=== PATIENT | male | born 1940 | race Caucasian/White ===

== ENCOUNTER 2017-06-19 13:45 | Outpatient (CLI) | payer MEDICARE, BC ==
--- NOTE | 2017-06-19 14:06 | RAD ---
PA AND LATERAL CHEST: COMPARISON: 04/24/06 exam. FINDINGS: Heart size is within normal limits. There is postop sternotomy change. Chronic-appearing lung clark es are seen. There has been development of some right-sided effusion since that prior exam versus pl eural thickening. IMPRESSION: 1. Right-sided pleural effusion versus pleural thickening new as compared to the old 2006 study. 2. Chronic lung change. POS: [facility]
== END 2017-06-19 13:46 | disposition home or self-care (01) ==
LOC: RAD 13:45
PROVIDERS: ATTEND Nurse Practitioner Family
DX: R94.2 Abnormal results of pulmonary function studies (principal)
CPT/HCPCS: 71046

== ENCOUNTER 2019-07-29 09:43 | Outpatient (CLI) | payer MEDICARE, BC ==
--- NOTE | 2019-07-29 11:44 | RAD ---
PA AND LATERAL VIEWS OF CHEST: Date: 07/29/2019 HISTORY: COPD, dyspnea. COMPARISON: 03/31/2019. FINDINGS: Changes of median sternotomy are again seen. Chronic pleural parenchymal changes, particularly in the right hemithorax, are stable. The heart size is normal. The aorta is tortuous. No lobar consolidatio n, pneumothoraces, or left-sided pleural effusion identified. There are degenerative changes in the s pine. IMPRESSION: Stable exam. POS: [facility]
== END 2019-07-29 09:44 | disposition home or self-care (01) ==
LOC: BICRAD 09:43
PROVIDERS: ATTEND Internal Medicine Critical Care Medicine
DX: R06.00 Dyspnea, unspecified (principal)
CPT/HCPCS: 71046

== ENCOUNTER 2019-08-23 08:40 | Outpatient (CLI) | payer MEDICARE, BC ==
--- NOTE | 2019-08-23 09:26 | CT ---
CT OF THE THORAX WITHOUT IV CONTRAST INDICATION: 79-year-old male with history of shortness of breath and open heart surgery COMPARISON: 2 view chest radiograph dated July 29, 2019 FINDINGS: LUNGS: There is a spiculated 1.7 x 1.1 cm pulmonary nodule involving the left infrahilar region, with in the left lower lobe on image 170 of the axial series and image 68 of the coronal series. This lesion is suspicious for malignancy. There is scattered moderate to severe paraseptal emphysema with peripheral interstitial fibrosis. This is seen in a predominantly upper lobe distribution. No additional suspicious pulmonary nodule is identified. Pleural spaces: There is chronic pleural thickening involving the right hemithorax. Lymph nodes: The lack of IV contrast limits evaluation for hilar lymphadenopathy. No definite patholo gically enlarged mediastinal lymph nodes are evident. Subcarinal lymph node measuring up to 1.4 cm. Heart and great vessels: There is postsurgical change of a prior CABG. There are prominent coronary a rtery and thoracic aortic calcifications. Upper abdomen: There is a 2.2 cm myelolipoma involving the right adrenal gland. Left adrenal gland is normal-appearing. Visualized aspects of the liver, pancreas and spleen appear within normal limits. Osseous structures: There are DISH like changes involving the thoracic spine with diffuse osteopenia. No suspicious osteolytic or osteoblastic lesion is identified. No acute fracture is present. IMPRESSION: 1. Spiculated left infrahilar nodule is suspicious for malignancy. Due to the proximity of this nodul e to the adjacent hilar vessels, CT-guided percutaneous biopsy is not recommended. Would recommend further characterization with a PET/CT and surgical referral. No overt mediastinal lymphadenopathy is evident. The subcarinal lymph node is upper limits of normal measuring 1.4 cm. Lymph nodes can be better characterized by PET/CT. 2. Moderate to severe emphysema 3. Persistent chronic pleural thickening involving the right hemithorax may reflect sequela of prior pleurodesis, infection or inflammation. 4. Right adrenal myelolipoma. 5. [facility] like changes of the thoracic spine
== END 2019-08-23 08:41 | disposition home or self-care (01) ==
LOC: BICCT 08:40
PROVIDERS: ATTEND Internal Medicine Critical Care Medicine
DX: R06.00 Dyspnea, unspecified (principal); R91.1 Solitary pulmonary nodule; J92.9 Pleural plaque without asbestos; J43.9 Emphysema, unspecified; D35.00 Benign neoplasm of unspecified adrenal gland
CPT/HCPCS: 71250

== ENCOUNTER 2019-11-03 09:42 | Outpatient (CLI) | payer MEDICARE, BC ==
--- NOTE | 2019-11-03 10:16 | CT ---
CT OF THE THORAX WITHOUT IV CONTRAST INDICATION: 79-year-old male with shortness of breath COMPARISON: Prior examination dated August 23, 2019 FINDINGS: LUNGS: The interstitial lung disease changes including peripheral interstitial thickening, subpleural honeycombing with scattered mild bronchiectasis, seen predominantly upper lobe distribution are stable. There are areas of subsegmental volume loss involving the right lung base due to a small righ t pleural effusion . There is a enlarging left infrahilar spiculated nodule measuring 2.3 cm were previously measured 1. 7 cm. Pleural spaces: Small right pleural effusion is stable. Lymph nodes: No pathologically enlarged lymph nodes. Subcarinal lymph node is stable in size measurin g 1.4 cm. Heart and great vessels: There is stable postprocedural change of a prior coronary artery bypass terry t. There are prominent calcifications involving the coronary arteries and thoracic aorta. Upper abdomen: There is a stable calcification seen within the right adrenal gland. 1.3 cm right adre nal myelolipoma is stable. No acute abnormality is seen within the upper abdomen. Osseous structures: The DISH like changes involving the thoracic spine are stable. IMPRESSION: 1. Enlarging left infrahilar spiculated pulmonary nodule. 2. Stable changes of mild to moderate interstitial lung disease. 3. Stable small chronic right pleural effusion. 4. Stable mild enlargement of a subcarinal lymph node measuring up to 1.4 cm. 5. Stable right adrenal myelolipoma.
== END 2019-11-03 09:43 | disposition home or self-care (01) ==
LOC: BICCT 09:42
PROVIDERS: ATTEND Internal Medicine Critical Care Medicine
DX: R06.00 Dyspnea, unspecified (principal); R91.1 Solitary pulmonary nodule; J84.9 Interstitial pulmonary disease, unspecified; J90 Pleural effusion, not elsewhere classified; R59.0 Localized enlarged lymph nodes; D17.79 Benign lipomatous neoplasm of other sites
CPT/HCPCS: 71250

== ENCOUNTER 2019-11-12 08:02 | Outpatient (CLI) | payer MEDICARE, BC ==
--- NOTE | 2019-11-12 11:10 | PET ---
EXAM: PET/CT HISTORY: Solitary pulmonary nodule TECHNIQUE: PET scanning with CT attenuation correction was performed from the base of the brain to the proximal thighs following the intravenous administration of 11.8 millicuries [id number]. COMPARISON: None. CORRELATION: CT chest of 11/03/2019 FINDINGS: There is hypermetabolic activity in the 2.3 cm infrahilar spiculated nodule in the left lower lobe wi th a SUV are 3.6. No aguilar hypermetabolism is seen in the mediastinal, hilar, axillary, cervical, abdominal or pelvic l ymph nodes. No hypermetabolic liver, adrenal or skeletal lesions are seen. There is a focally intense uptake in the rectosigmoid with an SUV of 10. There is physiologic activity in the GI and tracts and the visualized portions of the brain. The CT scan used for attenuation correction demonstrates no evidence of left pleural effusion or asci primo. A small right pleural effusion is again seen. IMPRESSION: 1. Findings are suspicious for left lower lobe malignancy without evidence of metastatic disease. 2. A colonoscopy should be performed to evaluate the finding in the rectosigmoid.
== END 2019-11-12 08:03 | disposition home or self-care (01) ==
LOC: PET 08:02
PROVIDERS: ATTEND Internal Medicine Critical Care Medicine
DX: R91.1 Solitary pulmonary nodule (principal)
CPT/HCPCS: 78815; A9552

== ENCOUNTER 2019-11-24 12:40 | Inpatient (IN) | payer MEDICARE, BC, OTHER ==
[~2019-11-24 12:40] MED LIST: Heparin 1,000 UNITS/ML VIAL ONE; Iopamidol-370 76% 500 ML 1 ML ONE
[2019-11-24 13:34] LABS: #Lymphocytes 1.5 thou/uL (1.20-3.40); #Monocytes 0.5 thou/uL (0.11-0.59); #Neutrophils 6.4 thou/uL (1.40-6.50); %Basophils 0.3 % (0.0-1.0); %Eosinophils 0.1 % (0.0-10.0); %Lymphocytes 18.1 % (21.0-51.0); %Monocytes 6.3 % (0.0-10.0); %Neutrophils 75.1 % (42.0-75.0); Hemoglobin 15.8 g/dL (14.0-18.0); Mean Corpuscular HGB CONC 31.9 g/dL (32.0-36.0); Mean Corpuscular Hemoglobin 31.5 pg (27.0-31.0); Mean Corpuscular Volume 98.6 fL (78.0-98.0); Mean Platelet Volume 7.1 fL (7.4-10.4); Platelet Count 155 thou/uL (130-400); RBC Distribution Width 13.2 % (11.5-14.5); Red Blood Cell (RBC) Count 5.01 mill/uL (4.70-6.10); White Blood Cell (WBC) Count 8.5 thou/uL (4.8-10.8)
--- NOTE | 2019-11-24 13:37 | RAD ---
XR Chest 1 View Portable History: Shortness of breath Comparison: Chest CT October 2019 Findings: Left lower lobe mass is unchanged. Chronic right lower pleural effusion is similar. Right l ower lobe atelectasis is present. No acute osseous abnormality. Multiple midline sternotomy wires. Impression: 1. Similar appearing left perihilar mass. 2. Chronic right layering pleural effusion and adjacent from atelectasis. 3. No evidence for acute pneumonia.
[2019-11-24 13:59] LABS: ALT (SGPT) 23 U/L (8-55); AST (SGOT) 28 U/L (5-34); Alkaline Phosphatase 111 U/L (40-110); Anion Gap 15 mmol/L (10-20); BUN (Urea Nitrogen) 15 mg/dL (8.4-25.7); Bilirubin, Total 0.5 mg/dL (0.2-1.2); Calc. Creatinine Clearance 0 mL/min (70-130); Calcium 9.4 mg/dL (7.8-10.44); Carbon Dioxide 32 mmol/L (23-31); Chloride 100 mmol/L (98-107); Estimated GFR-MDRD 84; Globulin 3.3 g/dL (2.4-3.5); Glucose 163 mg/dL (83-110); Protein, Total 7.3 g/dL (5.8-8.1); Sodium 143 mmol/L (136-145)
[2019-11-24 14:17] LABS: CKMB 2.8 ng/mL (0-6.6)
[2019-11-24] MEDS ORDERED: Aspirin Chewable 81 MG TAB ONE (15:33)
[2019-11-24] MEDS ORDERED: Furosemide 20 MG/2 ML VIAL ONE (15:33)
[2019-11-24 17:28] LABS: Troponin I 0.121 ng/mL (< 0.028)
[2019-11-24] MEDS ORDERED: Ondansetron PF 4 MG/2 ML Vial IVP PRN ×2 (18:30→18:46)
[2019-11-24] MEDS ORDERED: Acetaminophen 325 MG TAB PO PRN (18:30)
[2019-11-24] MEDS ORDERED: Sodium Chloride 0.9% 1,000 ML IV SCH (18:30)
[2019-11-24] MEDS ORDERED: Ondansetron ODT 4 MG TAB SL PRN (18:30)
[2019-11-24] MEDS ORDERED: IBUPROFEN PO PRN (18:31)
[2019-11-24] MEDS ORDERED: PROVENTIL INHALER 6.7 G (200 INHALATIONS) INH PRN (18:31)
[2019-11-24] MEDS ORDERED: HYDROCODONE PO PRN (18:31)
--- NOTE | 2019-11-24 18:31 | PDOC.FPRHP ---
- History of Present Illness Chief Complaint: SOB History of Present Illness: This is a 79 yo male with a pmh of HTN, HLD, CAD, COPD, likely some pulmonary malignancy who presents to the ER with acc of SOB. He states the SOB has been going on for the last 7 months. He states in March, he was cutting a porcelain bath tub with no mask. He states that his lungs have not been the same since then. Acutely, in the last 2-3 days, he states that he has had progressive SOB, dyspnea, and exercise intolerance. He was preparing for a colonoscopy and finished the prep, when he was seen at the endoscopy suite and was pale. His niece was worried about him and prompted the visit to the ER. He denies chest pain, increased sputum production, cough, fever, chills, sick contacts, or swelling. He does appear to have a lung mass on CXR than apparently was concerning for cancer. He had a PET scan on 11/10/19 that shows increased uptake in the lung, gut, and brain. He is unaware of any progress being made on these findings at this time. Dr. Damon is his general milling superintendent and Dr. Quiles is his trimming cutter. In addition, he reports progressive dysphagia. He states he has some trouble swallowing food but no trouble with liquids. He denies any treatment at this time but reports he needs someone to go and stretch out his esophagus ED Course: Lasix 20mg Aspirin 324 Duoneb - Allergies/Adverse Reactions Allergies Allergy/AdvReac Type Severity Reaction Status Date / Time No Known Allergies Allergy Unverified 03/22/15 09:43 - Home Medications Medication Instructions Recorded Confirmed Type Atorvastatin Calcium 80 mg PO QPM 03/22/15 11/24/19 History Carvedilol 0.5 tab PO BID 03/22/15 11/24/19 History HYDROcodone/Ibuprofen [Ibudone] 1 tablet PO TID PRN 03/22/15 11/24/19 History Ipratropium [place] 0.5 mg NEB Q6HR PRN 03/22/15 03/22/15 History Multivit-Min/FA/Lycopen/Lutein 1 each PO DAILY 03/22/15 11/24/19 History [Centrum Silver Tablet] Ramipril 5 mg PO QAM 03/22/15 11/24/19 History Tamsulosin HCl [Flomax] 0.4 mg PO BID 03/22/15 11/24/19 History Aspirin [Aspirin EC] 81 mg PO DAILY #0 03/24/15 11/24/19 Rx Clopidogrel Bisulfate [Plavix] 75 mg PO DAILY #0 03/24/15 11/24/19 Rx Albuterol Sulfate [Albuterol 8.5 gm IH Q4HR PRN 11/24/19 11/24/19 History Sulfate Hfa] Ipratropium/Albuterol Sulfate 3 ml NEB QID PRN 11/24/19 11/24/19 History [Duoneb] rOPINIRole HCl [Ropinirole HCl] 0.25 mg PO DAILY 11/24/19 11/24/19 History - History PMHx: COPD, CAD, HLD, HTN, BPH PSHx: CABG, low back pain FHx: Non-contributory Social: Denies alcohol or drug abuse, reports previous significant smoking history and currently dips - Review of Systems General: reports: fatigue. denies: fever/chills, weight/appetite/sleep changes, night sweats Eyes: denies: eye pain, vision changes ENT: denies: nasal congestion, rhinorrhea Respiratory: reports: shortness of breath, exercise intolerance. denies: cough, congestion Cardiovascular: denies: chest pain, palpitation, edema, paroxysmal nocturnal dyspnea, orthopnea Gastrointestinal: denies: nausea, vomiting, diarrhea, constipation, abdominal pain Genitourinary: denies: incontinence, dysuria Skin: denies: rashes, lesions Musculoskeletal: reports: pain (low back pain). denies: tenderness, stiffness Neurological: denies: numbness, syncope, seizure, weakness Psychological: denies: depression - Vital signs BP: HR: 85 RR: 20 Tmax: 98.1 Pox: 95% on ra Wt: 63kg 132/67 - Physical Exam Constitutional: NAD, awake, alert and oriented, well developed HEENT: EOMI, grossly normal vision, grossly normal hearing, MMM, other (brown tongue consistent with chewing tobacco) Neck: trachea midline, no JVD Heart: RRR, normal S1/S2 Lungs: CTAB, no respiratory distress, good air movement, no rales/rhonchi, no wheezing, no retractions Abdomen: soft, non-tender, bowel sounds present, no masses/distention Musculoskeletal: normal structure, normal tone Neurological: normal sensation Skin: good turgor, capillary refill <2 seconds Heme/Lymphatic: no unusual bruising or bleeding, no purpura Psychiatric: normal mood and affect, good judgment and insight FMR H&P: Results - Labs Result Diagrams: 11/24/19 13:00 11/24/19 13:00 Lab results: WBC 8.5 thou/uL (4.8-10.8) 11/24/19 13:00 Hgb 15.8 g/dL (14.0-18.0) 11/24/19 13:00 Hct 49.4 % (42.0-52.0) 11/24/19 13:00 MCV 98.6 fL (78.0-98.0) H 11/24/19 13:00 Plt Count 155 thou/uL (130-400) 11/24/19 13:00 Neutrophils % 75.1 % (42.0-75.0) H 11/24/19 13:00 Sodium 143 mmol/L (136-145) 11/24/19 13:00 Potassium 4.0 mmol/L (3.5-5.1) 11/24/19 13:00 Chloride 100 mmol/L (98-107) 11/24/19 13:00 Carbon Dioxide 32 mmol/L (23-31) H 11/24/19 13:00 BUN 15 mg/dL (8.4-25.7) 11/24/19 13:00 Creatinine 0.88 mg/dL (0.7-1.3) 11/24/19 13:00 Glucose 163 mg/dL (83-110) H 11/24/19 13:00 Calcium 9.4 mg/dL (7.8-10.44) 11/24/19 13:00 Total Bilirubin 0.5 mg/dL (0.2-1.2) 11/24/19 13:00 AST 28 U/L (5-34) 11/24/19 13:00 ALT 23 U/L (8-55) 11/24/19 13:00 Alkaline Phosphatase 111 U/L (40-110) H 11/24/19 13:00 CK-MB (CK-2) 2.8 ng/mL (0-6.6) 11/24/19 13:00 B-Natriuretic Peptide 158.5 pg/mL (0-100) H 11/24/19 13:00 Serum Total Protein 7.3 g/dL (5.8-8.1) 11/24/19 13:00 Albumin 4.0 g/dL (3.4-4.8) 11/24/19 13:00 - EKG Interpretation EKG: NSR HR 95, QTc 427, no st elevation or depression - Radiology Interpretation Chest x-ray Status: image reviewed by me, report reviewed by me (1. Similar appearing left perihilar mass. 2. Chronic right layering pleural effusion and adjacent from atelectasis. 3. No evidence for acute pneumonia.) CT scan - chest Status: image reviewed by me, report reviewed by me (No PE Chronic parenchymal changes, small right effusion, left infrahilar lung mass) FMR H&P: A/P - Plan Acute hypoxic respiratory failure likely 2/2 lung mass vs environmental factors -Admit to tele obs -CTA negative for PE, shows left infrahilar mass that was seen on PET scan earlier this month -CXR consistent with above -Will treat with steroids and duonebs -Procal pending to assess PNA picture, although I do not believe he needs abx at this time -Consult Dr. Damon in the AM NSTEMI -Troponin 0.11 x 2, trending a third -Hx of CAD -Will trend and consider stressing in the AM -Starting on therapeutic lovenox at this time -Will consult cardiology if this continues to trend up -EKG is not concerning -Continue plavix and atorvastatin COPD -Continue home albuterol and duonebs -Will start on steroids at this time Chronic low back pain s/p laminectomy -Continue home hydrocodone/ibuprofen HTN -Continue home BP meds BPH -Continue home tamsulosin Code: Full Prophylaxis: Therapeutic lovenox Family: Niece at bedside Fluids: SL Diet: HH Disposition: Transition to hospitalist in the AM PCP: Dr. Guthrie
--- NOTE | 2019-11-24 18:36 | CT ---
CTA CHEST WITH CONTRAST: 11/24/19 Axial tomograms obtained following an angio protocol with multiplanar reconstruction and 3D postproce ssing. INDICATIONS: Dyspnea. History of COPD. Assess for pulmonary embolus. Comparison made to recent CT chest of 11/03/19. That exam described enlarging left infrahilar pulmonary nodule and chronic lung changes. FINDINGS: Pulmonary arteries are well opacified. There is no evidence of pulmonary embolus. The lung felipe again show chronic lung parenchymal changes which have been previously described and remain stable. The spiculated mass in the left infrahilar region is again seen and unchanged from the recent exam of 11/03/19. Small right effusion is again seen and is also unchanged from 11/03/19 along wi th the associated mild right basilar atelectasis. The thoracic aorta is opacified and there is no evidence of dissection. Right adrenal nodule and calcification is again seen and unchanged. IMPRESSION: 1. No evidence of pulmonary embolus. 2. Chronic lung parenchymal changes are again seen with small right effusion and the left infrah ilar lung mass which was described on the exam of 11/03/19. These findings are unchanged. POS: [facility]
[2019-11-24] MEDS ORDERED: Ondansetron ODT 4 MG TAB PO PRN (18:46)
[2019-11-24] MEDS ORDERED: Ipratropium Bromide 2.5 ml Neb NEB PRN (18:46)
[2019-11-24] MEDS ORDERED: methylPREDNISolone Sod Succ/PF 125 MG/2 ML VIAL IVP SCH (19:00)
[2019-11-24] MEDS: Ipratropium Bromide 2.5 ml Neb NEB SCH ×2 (19:24→23:47)
[2019-11-24 19:38] VITALS: BMI 19.7
[2019-11-24 20:34] LABS: Troponin I 0.109 ng/mL (< 0.028)
[2019-11-24] MEDS: Carvedilol 25 MG TAB PO SCH (22:13)
[2019-11-24] MEDS: Atorvastatin Calcium 40 MG TAB PO SCH (22:13)
[2019-11-24] MEDS: Tamsulosin HCl 0.4 MG CAP PO SCH (22:14)
[2019-11-25] MEDS: Enoxaparin Sodium 60 MG/0.6 ML SYRINGE SC SCH ×3 (00:55→21:39)
[2019-11-25 05:07] LABS: #Lymphocytes 0.9 thou/uL (1.20-3.40); #Monocytes 0.1 thou/uL (0.11-0.59); #Neutrophils 6.5 thou/uL (1.40-6.50); %Basophils 0.1 % (0.0-1.0); %Eosinophils 0.1 % (0.0-10.0); %Lymphocytes 12.5 % (21.0-51.0); %Monocytes 0.6 % (0.0-10.0); %Neutrophils 86.8 % (42.0-75.0); Hemoglobin 15.1 g/dL (14.0-18.0); Mean Corpuscular HGB CONC 33.3 g/dL (32.0-36.0); Mean Corpuscular Volume 96.3 fL (78.0-98.0); Mean Platelet Volume 7.4 fL (7.4-10.4); Platelet Count 139 thou/uL (130-400); RBC Distribution Width 13.1 % (11.5-14.5); Red Blood Cell (RBC) Count 4.72 mill/uL (4.70-6.10); White Blood Cell (WBC) Count 7.5 thou/uL (4.8-10.8)
[2019-11-25 05:12] LABS: Hemoglobin A1c 6.4 % (4.0-6.0)
[2019-11-25 05:33] LABS: ALT (SGPT) 23 U/L (8-55); AST (SGOT) 33 U/L (5-34); Albumin 3.6 g/dL (3.4-4.8); Alkaline Phosphatase 115 U/L (40-110); Anion Gap 9 mmol/L (10-20); BUN (Urea Nitrogen) 16 mg/dL (8.4-25.7); Bilirubin, Total 0.5 mg/dL (0.2-1.2); Calc. Creatinine Clearance 69 mL/min (70-130); Carbon Dioxide 37 mmol/L (23-31); Chloride 99 mmol/L (98-107); Estimated GFR-MDRD Greater than 90; Globulin 3.2 g/dL (2.4-3.5); Glucose 175 mg/dL (83-110); Protein, Total 6.8 g/dL (5.8-8.1); Sodium 141 mmol/L (136-145)
--- NOTE | 2019-11-25 05:43 | PDOC.FM ---
- Subjective Subjective: Pt resting in bed comfortably this AM. No acute events overnight. - Objective Vital Signs & Weight: Vital Signs (12 hours) Temp Pulse Resp BP BP BP Pulse Ox 11/25/19 04:28 97.9 F 89 20 130/60 93 L 11/24/19 23:47 69 16 95 11/24/19 23:37 97.8 F 93 16 126/59 L 92 L 11/24/19 22:13 97.8 F 87 16 120/58 L 95 11/24/19 19:24 16 11/24/19 18:29 97.9 F 91 20 140/63 93 L Weight Weight 63.321 kg I&O: 11/23/19 11/24/19 11/25/19 06:59 06:59 06:59 Output Total 185 Balance -185 Result Diagrams: 11/25/19 04:51 11/25/19 04:51 Phys Exam - Physical Examination Constitutional: NAD HEENT: PERRLA Neck: no nodes Respiratory: no wheezing, no rales, no rhonchi, clear to auscultation bilateral Cardiovascular: RRR, no significant murmur, no rub Gastrointestinal: soft, non-tender, no distention Musculoskeletal: no edema, pulses present Neurological: non-focal, normal sensation, moves all 4 limbs Lymphatic: no nodes Psychiatric: normal affect, A&O x 3 Skin: no rash, normal turgor, cap refill <2 seconds Dx/Plan - Plan Plan: Acute hypoxic respiratory failure likely 2/2 lung mass vs environmental factors -Admit to tele obs -CTA negative for PE, shows left infrahilar mass that was seen on PET scan earlier this month -CXR consistent with above -Will treat with steroids and duonebs -Procal 0.02 -Consult Dr. Damon this AM NSTEMI, type 2 -Troponin 0.11--> 0.121 --> 0.109 -Hx of CAD -Will consider stressing in the AM -Starting on therapeutic lovenox at this time -EKG is not concerning -Continue plavix and atorvastatin COPD -Continue home albuterol and duonebs -Will start on steroids at this time Chronic low back pain s/p laminectomy -Continue home hydrocodone/ibuprofen HTN -Continue home BP meds BPH -Continue home tamsulosin Pre Diabetes -A1C 6.4 Code: Full Prophylaxis: Therapeutic lovenox Family: Niece at bedside Fluids: SL Diet: HH Disposition: Transition to hospitalist in the AM PCP: Dr. Guthrie
[2019-11-25] MEDS: Ipratropium Bromide 2.5 ml Neb NEB SCH ×3 (06:56→18:33)
--- NOTE | 2019-11-25 08:28 | PDOC.EVN ---
Event Note - Event Note Event Note: Discussed pt with salon assistant hospitalist physician and we are transferring care to the hospitalist team.
[2019-11-25] MEDS: Ramipril 5 MG CAP PO SCH (08:34)
[2019-11-25] MEDS: Carvedilol 25 MG TAB PO SCH ×2 (08:35→21:34)
[2019-11-25] MEDS: Multivitamin W/ Minerals 1 TAB PO SCH (08:36)
[2019-11-25] MEDS: Tamsulosin HCl 0.4 MG CAP PO SCH ×2 (08:36→21:35)
[2019-11-25] MEDS: predniSONE 20 MG TAB PO SCH (08:36)
[2019-11-25] MEDS ORDERED: Clopidogrel Bisulfate 75 MG TAB PO SCH (09:00)
[2019-11-25] MEDS ORDERED: Aspirin 81 mg Enteric Coated Tablet PO SCH (09:00)
[2019-11-25] MEDS ORDERED: Enoxaparin Sodium 40 MG/0.4 ML SYRINGE SC SCH (09:00)
[2019-11-25 12:00] LABS: SARS-CoV-2 MS2 Positive; SARS-CoV-2 N Gene Negative; SARS-CoV-2 S Gene Negative; SARS-CoV-2 by NAA Not Detected (NotDetected); SARS-CoV-2 orf1ab Negative
[2019-11-25] MEDS: rOPINIRole HCl 0.25 MG TAB PO SCH (14:03)
--- NOTE | 2019-11-25 14:21 | PDOC.HOSPP ---
- Subjective Encounter Date: 11/25/19 Encounter Time: 10:00 Subjective: Seen and examined in bed. Complaint of dyspnea with mild exertion. Denies any chest pain. - Objective Vital Signs & Weight: Vital Signs (12 hours) Temp Pulse Pulse Pulse Resp BP BP 11/25/19 11:55 97.9 F 78 16 11/25/19 11:00 97.9 F 78 16 111/56 L 11/25/19 09:42 92 118/62 11/25/19 09:10 80 138/60 11/25/19 08:34 138/63 11/25/19 08:00 97.7 F 85 16 138/63 11/25/19 07:34 97.7 F 85 16 11/25/19 06:52 90 14 11/25/19 04:28 97.9 F 89 20 BP BP Pulse Ox Pulse Ox Pulse Ox 11/25/19 11:55 111/56 L 94 L 11/25/19 11:00 94 L 11/25/19 09:42 130/58 L 11/25/19 09:10 155/67 H 93 L 94 L 11/25/19 08:34 11/25/19 08:00 93 L 11/25/19 07:34 138/63 93 L 11/25/19 06:52 11/25/19 04:28 130/60 93 L Weight Weight 139 lb 9.6 oz I&O: 11/24/19 11/25/19 11/26/19 06:59 06:59 06:59 Intake Total 240 Output Total 185 Balance 55 Result Diagrams: 11/25/19 04:51 11/25/19 04:51 Hospitalist ROS - Medication Medications: Active Medications Generic Name Dose Route Start Last Admin Trade Name Freq PRN Reason Stop Dose Admin Albuterol/Ipratropium 3 ml 11/24/19 18:31 11/25/19 06:52 Ipratropium/Albuterol Sulfate 3 Ml Neb NEB 3 ml QID PRN Administration SOB &/or Wheezing Atorvastatin Calcium 80 mg 11/24/19 21:00 11/24/19 22:13 Atorvastatin Calcium 40 Mg Tab PO 80 mg QPM MARGOT Administration Carvedilol 12.5 mg 11/24/19 21:00 11/25/19 08:35 Carvedilol 25 Mg Tab PO 12.5 mg BID MARGOT Administration Clopidogrel Bisulfate 75 mg 11/25/19 09:00 11/25/19 08:36 Clopidogrel Bisulfate 75 Mg Tab PO 75 mg DAILY MARGOT Administration Enoxaparin Sodium 60 mg 11/24/19 21:00 11/25/19 08:34 Enoxaparin Sodium 60 Mg/0.6 Ml Syringe SC 60 mg 0900,2100 MARGOT Administration Ipratropium [place] 2.5 ml 11/24/19 19:00 11/25/19 14:06 Ipratropium [place] 2.5 Ml Neb NEB Not Given [id number] MARGOT Iron/Minerals/Multivitamins 1 tab 11/25/19 09:00 11/25/19 08:36 Multivitamin W/ Minerals 1 Tab PO 1 tab DAILY MARGOT Administration Prednisone 40 mg 11/25/19 09:00 11/25/19 08:36 Prednisone 20 Mg Tab PO 40 mg DAILY MARGOT Administration Ramipril 5 mg 11/25/19 09:00 11/25/19 08:34 Ramipril 5 Mg Cap PO 5 mg QAM MARGOT Administration Ropinirole HCl 0.25 mg 11/25/19 09:00 11/25/19 14:03 Ropinirole Hcl 0.25 Mg Tab PO Not Given DAILY MARGOT Tamsulosin HCl 0.4 mg 11/24/19 21:00 11/25/19 08:36 Tamsulosin Hcl 0.4 Mg Cap PO 0.4 mg BID MARGOT Administration - Exam General - other findings: Patient in bed, in no acute distress. Heart - other findings: S1-S2 present and normal. No murmurs gallops or rubs. Respiratory: no wheezes, no rales, no ronchi Respiratory - other findings: Reduced air entry bilaterally. Gastrointestinal: soft, non-tender, non-distended, normal bowel sounds Extremities: no cyanosis, no clubbing, no edema Neurological: cranial nerve grossly intact, no weakness Psychiatric: A&O x 3 Hosp A/P - Plan 79-year-old male patient with a history of COPD, coronary disease recently diagnosed parahilar mass admitted on account of worsening dyspnea. He also has elevated troponin being managed for NSTEMI Dyspnea Multifactorialpossible acute heart failure exacerbation/COPD Was given Lasix in EDpatient currently looks dry. Her breathing treatments and treatment for COPD We will consult cardiology and pulmonology NSTEMI Troponin elevated with dyspnea History of CAD Currently on Lovenox Cardiology consulted COPD Possible acute exacerbation Home breathing treatments DuoNebs as needed Prednisone PRN oxygen. We will add azithromycin. Lung nodule Currently being worked up Already known to pulmonology We will consult. Increased GI/ activity on PET scan Was due for colonoscopy prior to this event We will consult GI Hypertension Continue lisinopril BPH Continue tamsulosin Coronary disease Status post CABG Continue aspirin and Plavix, carvedilol VTE prophylaxistherapeutic on Lovenox CODE STATUSfull Dispositionpending improvement
[2019-11-25] MEDS ORDERED: Azithromycin 500 MG in Syringe 0 ML IVPB SCH (14:30)
[2019-11-25] MEDS: Azithromycin 500 MG in Sodium Chloride 0.9% 250 ML 250 ML IVPB SCH (15:17)
[2019-11-25] MEDS ORDERED: GoLYTELY 4,000 ml Bottle PO SCH (17:15)
--- NOTE | 2019-11-25 18:19 | CON ---
DATE OF CONSULTATION: 11/25/2019 REASON FOR CONSULTATION: Shortness of breath. PRIMARY MAINTENANCE JOB TITLES: Dr. J Carlos Quiles. HISTORY OF PRESENT ILLNESS: Mr. Benitez is a very pleasant 79-year-old white gentleman, who comes to the hospital for shortness of breath. He has been evaluated several times for shortness of breath in the past and actually is being currently evaluated for possible lung malignancy. He has known COPD and has a chronic right-sided pleural effusion. Dr. Quiles follows Mr. Benitez for history of ischemic cardiomyopathy and previous coronary artery bypass grafting. The last time he had an EF evaluation was on recent stress test. I think it is within the last year that had a normal EF at about 55%. Mr. Benitez denies any chest pain, tightness, or pressure. He was admitted and Cardiology has been consulted for the shortness of breath. Pulmonary is being consulted for the shortness of breath as well and GI is being consulted for some increased uptake on a PET scan and he was pending to have an endoscopy and colonoscopy. PAST MEDICAL HISTORY: 1. COPD. 2. Coronary artery disease, status post bypass. 3. Hyperlipidemia. 4. Hypertension. 5. BPH. 6. Chronic low back pain. SURGICAL HISTORY: CABG several years back. Heart catheterization in 2002 showed one of three bypasses were patent. His original bypass was in 1997. OUTPATIENT MEDICATIONS: 1. . 2. Carvedilol 6.25 b.i.d. 3. Potassium. 4. Vitamin C. 5. Ibudone. 6. Glucosamine. 7. Multivitamin. 8. Chondroitin. 9. Atorvastatin 80 mg at bedtime. 10. Ramipril 5 mg a day. 11. Plavix 75 mg a day. 12. Ipratropium bromide. 13. Vascepa two capsules b.i.d. 14. Ropinirole 0.25 a day. 15. Aspirin 81 a day. FAMILY HISTORY: Noncontributory. REVIEW OF SYSTEMS: A 12-point review of systems was done and was found to be negative other than stated in the history of present illness. PHYSICAL EXAMINATION: VITAL SIGNS: Temperature 97.5, pulse 83, respiratory rate 18, saturating 96% on room air, blood pressure 103/54. GENERAL: Awake, alert, oriented x3. No distress. HEENT: Normocephalic, atraumatic. NECK: Supple. LUNGS: Have reduced breath sounds bilaterally. CARDIOVASCULAR: S1 and S2. No S3 or S4. No murmurs. ABDOMEN: Soft. Positive bowel sounds. EXTREMITIES: No edema. SKIN: Warm and dry. LABORATORY DATA: Laboratory work was reviewed. White count of 8, hemoglobin 15, hematocrit 49, platelet count of 155. Coags, D-dimer is a little bit elevated. Chemistries unremarkable. Troponin was indeterminate at 0.12, 0.10, and 0.11. BNP was 158, just barely above normal. Hemoglobin A1c of 6.4. Normal BUN and creatinine. GFR greater than 90. COVID with PCR was not detected. Echocardiogram was technically difficult with LV function seemed just mildly reduced but could not assess with accuracy. Grade 1 diastolic dysfunction and no major valvular abnormality. CT of the chest with contrast showed no evidence of pulmonary embolism. There are chronic lung parenchymal changes with a small right effusion and a left infrahilar lung mass which is stable from study done just about a month ago. ASSESSMENT AND PLAN: 1. Shortness of breath. Likely multifactorial more than likely related to either chronic obstructive pulmonary disease versus lung mass. 2. Type 2 demand type of ischemia. Elevated troponin is unlikely to be an acute coronary syndrome and most likely just demand ischemia from his current situation. 3. Coronary artery disease. 4. History of ischemic cardiomyopathy. We will do a MUGA skin to assess LV function with more accuracy as his images were not adequate to assess an accurate LV function. Thank you for letting us to participate in the care of your patient. We will continue to follow. Job ID: [id number]
--- NOTE | 2019-11-25 20:09 | CON ---
DATE OF CONSULTATION: REASON FOR CONSULTATION: The patient missed outpatient endoscopy on 11/23 secondary to not being able to breathe well and having saturations in the 70s. His granddaughter took to the hospital yesterday. I was asked to see him while he is in the hospital. He is awaiting consult from Pulmonology and Cardiology. Mr. Adams was recently seen in referral from Dr. Damon. He had been working up for lung lesion, which ended up getting a little bit bigger than being positive on the PET scan. The PET scan also showed some uptake in the rectum with SUVs of 10. The patient was sent back over to have a sigmoidoscopy or colonoscopy. When he was in my office, his main complaint was dysphagia for the past 9 months. He attributes to allergy medications and is having problems with solids and pills just around the sternal notch area. His weight had been 186 pounds in 2017, in the office he was 151. He apparently arrived, his O2 sats from high 90% to 99%. He is resting comfortably in bed. He states he is not short of breath now. He denies coughing or hemoptysis. He has dyspnea on exertion. He has profound fatigue with exertion. He has no chest pain or chest tightness with exertion or nausea or sweating. He had a CT angiogram in the emergency room was negative for pulmonary embolus. With regard to his heart disease, there is remote history of coronary artery bypass grafting. He states that he had a followup with Dr. J Carlos Quiles recently, was told he is doing well. He was to have echocardiogram, that was canceled because of COVID. PAST MEDICAL HISTORY: 1. COPD/asthma. 2. Hyperlipidemia. 3. Hypertension. 4. Myocardial infarction in the distant past. 5. Skin cancers. 6. Previous esophageal stricture, benign, dilated per Dr. Marcus Craig, he scoped him above and below in 2017. MEDICATIONS: 1. Atorvastatin. 2. Budesonide inhaler and nebulizer. 3. Carvedilol. 4. Clopidogrel. 5. Hydrocodone and ibuprofen. 6. Ipratropium and albuterol nebulizers. 7. Multivitamin. 8. Potassium. 9. Ropinrirole. 10. Tamsulosin. 11. Vitamin C. ALLERGIES: NONE KNOWN. SOCIAL HISTORY: Alcohol, none. He is a former smoker. FAMILY HISTORY: No family history of colon cancer or liver disease. He was brought to the hospital by his granddaughter. PHYSICAL EXAMINATION: VITAL SIGNS: Weight 151, temperature 97, pulse 83, blood pressure 111/56, and O2 saturation 96% on room air. GENERAL: Lungs, he moves air poorly. He is thin. He is cachectic. LYMPHATICS: He has had no supraclavicular or infraclavicular adenopathy. HEENT: Oropharynx without lesions. NECK: Supple without adenopathy. LUNGS: Clear. HEART: Regular rate and rhythm without clicks, rubs, or murmurs. ABDOMEN: Soft and nontender. EXTREMITIES: No clubbing, cyanosis, or edema. LABORATORY STUDIES: White count 7.5, hemoglobin 15, and platelet count 139. INR 1.12. Sodium 140, potassium 4, BUN and creatinine are 16 and 0.8. Liver function tests are normal. Previous CT scan and PET scan reviewed. ASSESSMENT: 1. Dysphagia, which he has had before related to a stricture. He needs an endoscopy and dilatation. He also has a questionable mass on his rectum based on the PET scan, although he had a normal colonoscopy in 2006 except for diminutive polyps in the sigmoid colon. 2. Weight loss. 3. Profound dyspnea. He has a history of coronary artery bypass grafting in the past, but in that report, Dr. Quiles told him his heart is doing well. He was due for an echocardiogram. The patient is going to be evaluated by them soon. He also sees Dr. Damon. His history is odd and he complains of significant drop in the PO2 with any kind of movement or exertion, but as long as he is still, he feels fine. PLAN: EGD and colonoscopy once he is cleared from pulmonary and cardiac standpoint. We will start a liquid diet now and plan endoscopy for tomorrow depending on the evaluation from Cardiology and Pulmonary later this evening. Job ID: [id number]
[2019-11-25] MEDS: Atorvastatin Calcium 40 MG TAB PO SCH (21:34)
[2019-11-25] MEDS: Acetaminophen 325 MG TAB PO PRN (21:53)
[2019-11-26] MEDS: Ipratropium Bromide 2.5 ml Neb NEB SCH ×3 (00:15→13:44)
--- NOTE | 2019-11-26 01:33 | CON ---
DATE OF CONSULTATION: 11/25/2019 Bryan Benitez is 79-year-old male. He is seen by me for weight loss and shortness of breath. He has a small lung mass. SUV on PET scanning was 4. He had a rectal abnormality on his PET scan with an SUV of 10. He does have hemorrhoids. He has had a colonoscopy within the last 4 years from what I understand. He is tentatively scheduled for colonoscopy and currently his granddaughter told him he was hypoxic based on a home oximetry. He went to the emergency room, was admitted. He has been losing weight and had been progressively getting weaker with his weight loss. With his weight loss, he has been getting progressively more short of breath. He has been blaming everything on cutting up some porcelain bathtubs with no mask, but it has been explained to him that I feel that his weight loss and his weakness is most likely paraneoplastic. He has been complaining of some problems with swallowing as well and it is not surprising given his inactivity and weight loss. PAST MEDICAL HISTORY: Remarkable for: 1. COPD. 2. History of hypertension. 3. History of coronary artery disease. 4. History of BPH. 5. History of coronary artery bypass grafting in the past. FAMILY HISTORY: Negative for lung disease in early age. REVIEW OF SYSTEMS: Ten points otherwise negative. PHYSICAL EXAMINATION: VITAL SIGNS: He is afebrile, heart rate 68, respiratory rate 16, oximetry is 94%-97% on room air blood pressure 103/54. HEENT: Pupils are equal. Sclerae anicteric. NECK: Supple. LUNGS: Clear. HEART: Regular rhythm. S1, S2 are normal. ABDOMEN: Soft and nontender. EXTREMITIES: Without clubbing, cyanosis, or edema. LABORATORY DATA: White count 7.5, hemoglobin 15, and platelets 139. Electrolytes are unremarkable. Bicarb is 37. Albumin is 3.6. Liver enzymes are normal. Alkaline phosphatase 115, it is fairly elevated. IMPRESSION: 1. Lung mass, likely malignant with an SUV of approximately 4. 2. Rectal abnormalities with a negative colonoscopy within the last 5 years. I suspect this will field return repairer to be related to hemorrhoids or proctitis. 3. Dr. Suazo plans to see him and considering an endoscopy. 4. The swallowing dysfunction is most likely secondary to his progressive muscle weakness and weight loss. 5. Chronic obstructive pulmonary disease. He is not wheezing at this point in time. I suspect his dyspnea on exertion is more related to weight loss and loss of muscle strength that very well could be paraneoplastic. I do not feel this lung lesion is amenable to a biopsy. I will talk to Dr. Zazueta about stereotactic radiation once we get this colon issue resolved. He looks essentially the same as he looked when I saw him in the office last week. This is a 50 min visit with greater than 50% of the time spent on the unit with coordination of care. Job ID: [id number] [facility]
[2019-11-26] MEDS: Acetaminophen 325 MG TAB PO PRN (02:02)
[2019-11-26 06:44] LABS: Anion Gap 12 mmol/L (10-20); BUN (Urea Nitrogen) 17 mg/dL (8.4-25.7); Calc. Creatinine Clearance 73 mL/min (70-130); Calcium 8.7 mg/dL (7.8-10.44); Carbon Dioxide 36 mmol/L (23-31); Chloride 96 mmol/L (98-107); Estimated GFR-MDRD Greater than 90; Glucose 124 mg/dL (83-110); Magnesium 1.7 mg/dL (1.6-2.6); Potassium 3.7 mmol/L (3.5-5.1); Sodium 140 mmol/L (136-145)
--- NOTE | 2019-11-26 07:18 | PRG ---
DATE OF SERVICE: 11/26/2019 SUBJECTIVE: Mr. Benitez is going down for endoscopy this morning. OBJECTIVE: VITAL SIGNS: His blood pressure and vital signs are stable overnight. He is afebrile. Heart rate is 80, respiratory rate is 16, oximetry is 94% on room air, and blood pressure is 142/63. LUNGS: He is not wheezing. IMPRESSION AND PLAN: 1. Weakness and shortness of breath, related to weight loss. 2. Underlying chronic obstructive pulmonary disease. He has not been bronchospastic, and as an outpatient, he has had the exact same symptoms. He has only noticed a minimal improvement with nebulizer treatments. Because of a positive PET scan in his rectum, he is having an endoscopy today. He has a nodule that is probably not amenable to a biopsy. I am hoping that with a positive PET scan he has had as an outpatient, Dr. Zazueta considered empiric stereotactic radiation. I do not think he would tolerate a biopsy even if we could biopsy this. He could be switched to p.o. antibiotics. Job ID: [id number]
[2019-11-26] MEDS ORDERED: PHENYLEPHRINE-NS 100 MCG/ML 10 ML SYRINGE ONE ×2 (07:25→08:53)
[2019-11-26] MEDS ORDERED: Ketamine 50 MG/ML (10ML VIAL) ONE (07:25)
[2019-11-26] MEDS ORDERED: PROPOFOL 200 MG/20 ML VIAL ONE (08:53)
[2019-11-26] MEDS ORDERED: Lidocaine 1% PF 5 ML VIAL ONE (08:53)
[2019-11-26] MEDS ORDERED: Aspirin 81 mg Enteric Coated Tablet PO SCH (09:00)
[2019-11-26] MEDS ORDERED: Promethazine HCl 25 MG/ML VIAL SLOW IVP PRN (09:34)
[2019-11-26] MEDS ORDERED: Promethazine HCl 25 MG/ML VIAL IM PRN (09:34)
[2019-11-26] MEDS ORDERED: Ondansetron HCl/PF 4 MG/2 ML Vial IVP PRN (09:34)
--- NOTE | 2019-11-26 10:29 | OP ---
DATE OF PROCEDURE: 11/26/2019 PREPROCEDURE DIAGNOSES: 1. Complaints of dysphagia. 2. Recent PET scan showing uptake in the rectosigmoid area. This was during an evaluation for a lung mass. 3. Prior history of colon polyps and esophageal stricture in 2017. POSTPROCEDURE DIAGNOSES: 1. Benign-appearing narrowing in the proximal esophagus with mild mucosal disruption after dilatation with 54-Syriac Swanson dilator. 2. Otherwise normal esophagogastroduodenoscopy. 3. Diverticulosis coli throughout the colon. 4. Four polyps, ranging in size from 3 to 6 mm, sessile in the rectosigmoid colon, all removed by snare polypectomy. These appear benign, but we will await pathology. RECOMMENDATIONS: 1. Resume diet. The patient can be discharged home from a GI standpoint. We will follow up pathology. 2. Follow up with Pulmonology regarding lung lesion. ANESTHESIA: TIVA. DESCRIPTION OF PROCEDURE: After the patient was informed of the risks, benefits, and possible complications of endoscopy including perforation, bleeding, reaction to medication, and aspiration, informed consent was obtained. The patient was brought to the endoscopy suite where he was sedated in gradual fashion. Once he was comfortable, a bite block was placed inside the orifice. The endoscope was advanced to the esophagus, stomach, and second and third portions of the duodenum and was slowly removed. The esophagus was normal in appearance. Empiric dilatation was performed, which met mild resistance in the proximal esophagus. On second look, there was mild mucosal disruption of the proximal 3rd of the esophagus, consistent with some narrowing here. The stomach and duodenum were normal. The stomach has had normal distensibility and was normal in forward and retroflexed views. No other lesions were seen here. The scope was used to desufflate the stomach and scope was removed. The patient returned to the room. Rectal examination was performed, which revealed no abnormalities. The endoscope was advanced from the anal canal through the colon to the cecum, which was identified by ileocecal valve and the appendiceal orifice. There was diverticulosis coli throughout the colon. There were four diminutive polyps throughout the rectosigmoid region, largest being 7 mm in size, smallest was 3. These were removed by hot snare polypectomy and submitted to Pathology. The scope was removed. The patient tolerated the procedures well. There were no complications. Job ID: [id number]
[2019-11-26] MEDS: Multivitamin W/ Minerals 1 TAB PO SCH (10:55)
[2019-11-26] MEDS: predniSONE 20 MG TAB PO SCH (10:55)
[2019-11-26] MEDS: Tamsulosin HCl 0.4 MG CAP PO SCH (10:55)
[2019-11-26] MEDS: rOPINIRole HCl 0.25 MG TAB PO SCH (10:55)
[2019-11-26] MEDS: Ramipril 5 MG CAP PO SCH (10:55)
[2019-11-26] MEDS: Enoxaparin Sodium 60 MG/0.6 ML SYRINGE SC SCH (10:56)
[2019-11-26] MEDS: Carvedilol 25 MG TAB PO SCH (10:56)
[2019-11-26 12:13] VITALS: BP 152/67
[2019-11-26 13:08] VITALS: TEMP 98.3
--- NOTE | 2019-11-26 13:09 | NM ---
MUGA SCAN: HISTORY: CHF RADIOPHARMACEUTICAL: 30 mCi technetium 99m labeled RBCs injected intravenously. Comparison: None FINDINGS: The left ventricular ejection fraction [id number]%. Wall motion is normal. IMPRESSION: LVEF is 57%.
--- NOTE | 2019-11-26 14:05 | PDOC.HOSPP ---
- Subjective Encounter Date: 11/26/19 Encounter Time: 14:03 - Objective Vital Signs & Weight: Vital Signs (12 hours) Temp Pulse Resp BP BP BP BP 11/26/19 13:44 101 H 16 11/26/19 10:55 150/70 H 11/26/19 10:50 98.3 F 88 18 152/67 H 11/26/19 10:18 152/67 H 136/62 11/26/19 03:49 97.5 F L 81 16 142/63 H Pulse Ox 11/26/19 13:44 11/26/19 10:55 11/26/19 10:50 95 11/26/19 10:18 11/26/19 03:49 94 L Weight Weight 139 lb 9.6 oz I&O: 11/25/19 11/26/19 11/27/19 06:59 06:59 06:59 Intake Total 240 4750 Output Total 185 950 Balance 55 3800 Result Diagrams: 11/25/19 04:51 11/26/19 06:16 Hospitalist ROS - Medication Medications: Active Medications Generic Name Dose Route Start Last Admin Trade Name Freq PRN Reason Stop Dose Admin Acetaminophen 650 mg 11/24/19 18:46 11/26/19 02:02 Acetaminophen 325 Mg Tab PO 650 mg Q4H PRN Administration Headache/Fever/Mild Pain (1-3) Albuterol/Ipratropium 3 ml 11/24/19 18:31 11/25/19 06:52 Ipratropium/Albuterol Sulfate 3 Ml Neb NEB 3 ml QID PRN Administration SOB &/or Wheezing Aspirin 81 mg 11/26/19 09:00 11/26/19 10:54 Aspirin 81 Mg Enteric Coated Tablet PO 81 mg DAILY MARGOT Administration Atorvastatin Calcium 80 mg 11/24/19 21:00 11/25/19 21:34 Atorvastatin Calcium 40 Mg Tab PO 80 mg QPM MARGOT Administration Carvedilol 12.5 mg 11/24/19 21:00 11/26/19 10:56 Carvedilol 25 Mg Tab PO 12.5 mg BID MARGOT Administration Enoxaparin Sodium 60 mg 11/24/19 21:00 11/26/19 10:56 Enoxaparin Sodium 60 Mg/0.6 Ml Syringe SC 60 mg 0900,2100 MARGOT Administration Azithromycin 500 mg/ Sodium 250 mls @ 250 mls/hr 11/25/19 15:00 11/25/19 15:17 Chloride IVPB 250 mls 1500 MARGOT Administration Ipratropium [place] 2.5 ml 11/24/19 19:00 11/26/19 13:44 Ipratropium [place] 2.5 Ml Neb NEB 2.5 ml [id number] MARGOT Administration Iron/Minerals/Multivitamins 1 tab 11/25/19 09:00 11/26/19 10:55 Multivitamin W/ Minerals 1 Tab PO 1 tab DAILY MARGOT Administration Prednisone 40 mg 11/25/19 09:00 11/26/19 10:55 Prednisone 20 Mg Tab PO 40 mg DAILY MARGOT Administration Ramipril 5 mg 11/25/19 09:00 11/26/19 10:55 Ramipril 5 Mg Cap PO 5 mg QAM MARGOT Administration Ropinirole HCl 0.25 mg 11/25/19 09:00 11/26/19 10:55 Ropinirole Hcl 0.25 Mg Tab PO 0.25 mg DAILY MARGOT Administration Tamsulosin HCl 0.4 mg 11/24/19 21:00 11/26/19 10:55 Tamsulosin Hcl 0.4 Mg Cap PO 0.4 mg BID MARGOT Administration Hosp A/P - Plan 79-year-old male patient with a history of COPD, coronary disease recently diagnosed parahilar mass admitted on account of worsening dyspnea. He also has elevated troponin being managed for NSTEMI Dyspnea Multifactorialpossible acute heart failure exacerbation/COPD Was given Lasix in EDpatient currently looks dry. Her breathing treatments and treatment for COPD We will consult cardiology and pulmonology NSTEMI Troponin elevated with dyspnea History of CAD Currently on Lovenox Cardiology consulted COPD Possible acute exacerbation Home breathing treatments DuoNebs as needed Prednisone PRN oxygen. We will add azithromycin. Lung nodule Currently being worked up Already known to pulmonology We will consult. Increased GI/ activity on PET scan Was due for colonoscopy prior to this event We will consult GI Hypertension Continue lisinopril BPH Continue tamsulosin Coronary disease Status post CABG Continue aspirin and Plavix, carvedilol VTE prophylaxistherapeutic on Lovenox CODE STATUSfull Dispositionpending improvement
[2019-11-26] MEDS: Azithromycin 500 MG in Sodium Chloride 0.9% 250 ML 250 ML IVPB SCH (14:31)
--- NOTE | 2019-11-26 14:41 | PDOC.CPN ---
- Subjective Date: 11/26/19 Time: 14:39 Interval history: No change in his SOB. - Review of Systems General: denies: fever/chills, weight/appetite/sleep changes, night sweats, fatigue Respiratory: reports: shortness of breath. denies: cough, congestion, exercise intolerance Cardiovascular: denies: chest pain, palpitation, edema, paroxysmal nocturnal dyspnea, orthopnea Gastrointestinal: denies: nausea, vomiting, diarrhea, constipation, abd pain, GI bleeding Musculoskeletal: denies: pain, tenderness, stiffness, swelling, arthritis/arthralgias Neurological: denies: numbness, syncope, seizure, weakness - Objective Allergies/Adverse Reactions: Allergies Allergy/AdvReac Type Severity Reaction Status Date / Time No Known Allergies Allergy Verified 11/24/19 22:31 Visit Medications: Current Medications Acetaminophen (Acetaminophen 325 Mg Tab) 650 mg PO Q4H PRN PRN Reason: Headache/Fever/Mild Pain (1-3) Last Admin: 11/26/19 02:02 Dose: 650 mg Documented by: Albuterol Sulfate (Proventil Inhaler 6.7 G (200 Inhalations)) 1 puff INH Q4H PRN PRN Reason: SOB &/or Wheezing Albuterol/Ipratropium (Ipratropium/Albuterol Sulfate 3 Ml Neb) 3 ml NEB QID PRN PRN Reason: SOB &/or Wheezing Last Admin: 11/25/19 06:52 Dose: 3 ml Documented by: Aspirin (Aspirin 81 Mg Enteric Coated Tablet) 81 mg PO DAILY [facility] Last Admin: 11/26/19 10:54 Dose: 81 mg Documented by: Atorvastatin Calcium (Atorvastatin Calcium 40 Mg Tab) 80 mg PO QPM [facility] Last Admin: 11/25/19 21:34 Dose: 80 mg Documented by: Carvedilol (Carvedilol 25 Mg Tab) 12.5 mg PO BID [facility] Last Admin: 11/26/19 10:56 Dose: 12.5 mg Documented by: Enoxaparin Sodium (Enoxaparin Sodium 60 Mg/0.6 Ml Syringe) 60 mg SC 0900,2100 [facility] Last Admin: 11/26/19 10:56 Dose: 60 mg Documented by: Azithromycin 500 mg/ Sodium (Chloride) 250 mls @ 250 mls/hr IVPB 1500 [facility] Last Admin: 11/26/19 14:31 Dose: 250 mls Documented by: Ipratropium [place] (Ipratropium [place] 2.5 Ml Neb) 2.5 ml NEB [id number] PRN PRN Reason: SOB &/or Wheezing Ipratropium [place] (Ipratropium [place] 2.5 Ml Neb) 2.5 ml NEB [id number] [facility] Last Admin: 11/26/19 13:44 Dose: 2.5 ml Documented by: Iron/Minerals/Multivitamins (Multivitamin W/ Minerals 1 Tab) 1 tab PO DAILY [facility] Last Admin: 11/26/19 10:55 Dose: 1 tab Documented by: (Hydrocodone/Ibuprofen [Ibudone] 10 Mg/200 Mg Tablet) 1 tablet PO TID PRN PRN Reason: Pain Ondansetron HCl (Ondansetron Odt 4 Mg Tab) 4 mg PO Q6H PRN PRN Reason: Nausea/Vomiting Ondansetron HCl (Ondansetron Pf 4 Mg/2 Ml Vial) 4 mg IVP Q6H PRN PRN Reason: Nausea/Vomiting Prednisone (Prednisone 20 Mg Tab) 40 mg PO DAILY [facility] Last Admin: 11/26/19 10:55 Dose: 40 mg Documented by: Ramipril (Ramipril 5 Mg Cap) 5 mg PO QAM [facility] Last Admin: 11/26/19 10:55 Dose: 5 mg Documented by: Ropinirole HCl (Ropinirole Hcl 0.25 Mg Tab) 0.25 mg PO DAILY [facility] Last Admin: 11/26/19 10:55 Dose: 0.25 mg Documented by: Sodium Chloride (Flush - Normal Saline 10 Ml Syringe) 10 ml IVF PRN PRN PRN Reason: Saline Flush Tamsulosin HCl (Tamsulosin Hcl 0.4 Mg Cap) 0.4 mg PO BID [facility] Last Admin: 11/26/19 10:55 Dose: 0.4 mg Documented by: Vital Signs & Weight: Vital Signs Temp Pulse Resp BP BP BP BP 11/26/19 13:44 101 H 16 11/26/19 10:55 150/70 H 11/26/19 10:50 98.3 F 88 18 152/67 H 11/26/19 10:18 152/67 H 136/62 11/26/19 03:49 97.5 F L 81 16 142/63 H Pulse Ox 11/26/19 13:44 11/26/19 10:55 11/26/19 10:50 95 11/26/19 10:18 11/26/19 03:49 94 L Weight 139 lb 9.6 oz - Physical Exam General: alert & oriented x3 HEENT: mucus membranes moist Neck: supple neck Cardiac: regular rate and rhythm Lungs: decreased breath sounds Neuro: no lateralizing findings Abdomen: active bowel sounds Extremities: no edema Skin: clear Musculoskeletal: no pain - Labs Result Diagrams: 11/25/19 04:51 11/26/19 06:16 Troponin/CKMB CK-MB (CK-2) 2.8 ng/mL (0-6.6) 11/24/19 13:00 Troponin I 0.109 ng/mL (< 0.028) H 11/24/19 19:48 - Telemetry Sinus rhythms and dysrhythmias: sinus rhythm - Assessment/Plan Assessment/Plan: 1. SOB 2. Lung mass under work up 3. COPD 4. Ischemic CM 5. Chronic pleural effusion PLAN: - MUGA scan confirmed EF at 57%. - SOB likely multifactorial. - No acute coronary syndrome. - CV stable. - Will sign off. Please call with any questions.
--- NOTE | 2019-11-29 05:40 | PQF ---
CLINICAL DOCUMENTATION CLARIFICATION FORM: Dear :Garry Botello Date / Time: 11/29/19 4637 Please exercise your independent, professional judgment in responding to the clarification form. Clinical indicators are provided on the bottom of this form for your review Please check appropriate box(es): HEART FAILURE: A.ACUITY [ ] Acute [ ] Acute on Chronic [ ] Chronic B.TYPE: [ ] Systolic / HFrEF [ ] Diastolic / HFpEF [ ] Combined Systolic / Diastolic [ ] Other diagnosis,please specify: [ ] Unable to determine In addition, please specify: Present on Admission (POA): [ ] Yes [ ] No [ ] Unable to determine Physician Signature: Date/Time: For continuity of documentation, please document condition throughout progress notes and discharge summary. Thank You. To be completed by CDI/Coding staff for physician review: Present Clinical Indicators - Signs / Symptoms / Labs Results and Location in Medical Record [X] CK-MB 2.8, BNP 158.5, troponin I 0.115; 0.121; 0.109 Laboratory 11/23 [X] Electrogardiogram: LV function seems reduced but cannot assess he accuracy Cardiac procedure Dr Botello 11/24 [X] MUGA: LVEF is 57% Cardiac procedure Dr Andre 11/25 [X] Dyspnea possible acute heart failure exacerbation/COPD HPN p4 Dr Lombardi11/24 [X] Chest Xray: Chronic right layering pleural effusion Chest Xray 11/23 [X] Symptoms may be consistent with new CHF ED Notes pg 4 11/23 [X] no JVD H&P p3 Dr Gongora 11/23 [X] no edema H&P p3 Dr Gongora 11/23 Present Risk Factors Results and Location in Medical Record [X] 79 year-old Male H&P p1 Dr Gongora 11/23 [X] CAD s/p CABG H&P p1 Dr Gongora 11/23 [X] HTN H&P p1 Dr Gongora 11/23 [X] Acute hypoxic Respiratory failure H&P p1 Dr Gongora 11/23 [X] Ischemic cardiomyopathy Consult Dr Botello 11/24 [X] HLD H&P p1 Dr Gongora 11/23 Present Treatments Results and Location in Medical Record [X] IV Lasix 40 MAY 02 [X] Aspirin 81 mg MAY 02 [X] Electrogardiogram Cardiac procedure Dr Botello 11/24 [X] MUGA Cardiac procedure Dr Andre 11/25 [X] Cardiology Consult Consult Dr Botello 11/24 [X] Chest Xray Collected 11/23 CDS/Lan Engineer Signature: Oxana Marrufo Phone #: ext [phone] Date/Time: 11/29/2019 0539 This is a permanent part of the Medical Record [facility]
--- NOTE | 2019-11-29 13:36 | DIS ---
DATE OF ADMISSION: 11/26/2019 DATE OF DISCHARGE: 11/26/2019 DISCHARGE DIAGNOSES: 1. Dyspnea. 2. Elevated troponin. 3. Chronic obstructive pulmonary disease exacerbation. 4. Pulmonary nodule. 5. Hypertension. 6. Benign prostatic hyperplasia. 7. Coronary artery disease. 8. Abdominal GI PET scan. BRIEF HOSPITAL COURSE: This is a 79-year-old male patient with a history of COPD, coronary artery disease, hypertension who presented on the day of admission with worsening dyspnea at home. Prior to presentation, he was being worked up for pulmonary nodule concerning for malignancy by Pulmonology and following the PET scan was noted to have increased activity in the GI tract. This necessitated order for upper and lower GI endoscopy for which he was preparing for that day when he became dyspneic and had to present to the hospital. He had lost weight but it was unclear the etiology as he was not yet diagnosed with a cancer On presentation, his troponin was elevated and given his history of CAD status post CABG, it was concerning for possible NSTEMI. Cardiology was consulted; however, they ruled out their concerns for CA and attributed his elevated troponin to demand ischemia. Pulmonology was consulted for his pulmonary nodule, but it was concluded that his pulmonary nodule was not the cause of his dyspnea. He was continued to be managed for COPD exacerbation on antibiotics, breathing treatments, and steroids. Gastroenterology was consulted and he was taken for upper and lower GI endoscopy where there were no lesions of concern. Polyps were taken and biopsy is pending. He will follow up with GI for further evaluation. Given the patient's increasing dyspnea and fatigue at home, the decision was made to consider home oxygen therapy. A 6-minute walk test was done and his oxygen saturation was at lowest at 91%, thus he did not qualify for home oxygen. The patient was discharged home to follow up with his Pulmonology and primary care physician to assess for home oxygen needs if necessary. DISCHARGE PHYSICAL EXAMINATION: GENERAL: The patient is in bed, in no acute distress. RESPIRATORY SYSTEM: Air entry reduced bilaterally. No rhonchi, rales, or wheezing heard. CARDIOVASCULAR SYSTEM: S1 and S2 present. No murmurs, gallops, or rubs. ABDOMEN: Soft, nontender. Bowel sounds present. EXTREMITIES: No edema noted. DISCHARGE MEDICATIONS: 1. Azithromycin 250 mg daily 2. Prednisone 40 mg daily x3. 3. Home medications to continue. DISCHARGE CONDITION: Stable. Job ID: [id number] [facility]
--- NOTE | 2019-11-30 05:27 | PQF ---
CLINICAL DOCUMENTATION CLARIFICATION FORM: Dear : Gilberto Lombardi Date / Time: 11/30/1905 Please exercise your independent, professional judgment in responding to the clarification form. Clinical indicators are provided on the bottom of this form for your review Please check appropriate box(es): [ ] Protein Calorie Malnutrition: [ ] Mild [ ] Moderate [ ] Severe [ ] Other Malnutrition (please specify) [ ] Underweight without malnutrition [ ] Cachexia [ ] Other diagnosis [x ] Unable to determine In addition, please specify: Present on Admission (POA): [ ] Yes [ ] No [ ] Unable to determine Physician Signature: Date/Time: For continuity of documentation, please document condition throughout progress notes and discharge summary. Thank You. To be completed by CDI/Coding staff for physician review: Present Clinical Indicators - Signs / Symptoms / Labs Results and Location in Medical Record [X] BP 140/63, Pulse 91, Resp 20, temp 97.7 Vital signs 11/23 [X] BMI of 19.[address] Damon 11/24 [X] Weight Loss Consult p2 Dr Damon 11/24 [X] Loss of Muscle strength Consult p2 Dr Damon 11/24 [X] Total Protein 7.3, Albumin 4.0, Globulin 3.3, Ratio 1.2 Laboratory 11/24 [X] He is thin. He is cachectic Consult 11/24 Dr. Suazo Present Risk Factors Results and Location in Medical Record [X] 79 year-old Male H&P p1 Dr Gongora 11/23 [X] Lung Cancer H&P p1 Dr Gongora 11/23 [X] Dysphagia Consult 11/24 Dr. Suazo [X] Former Smoker Anesthesia 11/25 [X] Diverticulosis of colon OP Note 11/25 Dr. Suazo Present Treatments Results and Location in Medical Record [X] Heart Healthy Diet Order Dr Lombardi 11/24 [X] Nutritional supplements Order Dr Lombardi 11/24 [X] Appetite stimulant - medication Order Dr Lombardi 11/24 CDS/Metrology Manager Signature: Oxana Houseelisa Phone #: ext [phone] Date/Time: 11/30/2019 0544 Moderate Malnutrition (in acute illness) ? Energy Intake: <75% of estimated energy requirement for > 7 days ? Weight Loss: 1-2%/1 week; 5%/ 1 month; 7.5%/3 months ? Other: mild body fat loss; mild muscle mass loss; mild fluid accumulation; Severe Malnutrition (in acute illness) ? Energy Intake: ? 50% of estimated energy requirement for ? 5 days ? Weight Loss: >2%/1 week; >5%/1 month; >7.5%/3 months ? Other: moderate body fat loss; moderate muscle mass loss; moderate- severe fluid accumulation; measurably reduced supervisor fleshing strength Moderate Malnutrition (in chronic illness) ? Energy Intake: <75% of estimated energy requirement for ?1 month ? Weight Loss: 5%/1 month; 7.5%/3 months; 10%/6 months; 20%/1 year ? Other: mild body fat loss; mild muscle mass loss; mild fluid accumulation Severe Malnutrition (in chronic illness) ? Energy Intake: ?75% of estimated energy requirement for ?1 month ? Weight Loss: >5%/1 month; >7.5%/3 months; >10%/6 months; >20%/1 year ? Other: severe body fat loss; severe muscle mass loss; severe fluid accumulation; measurably reduced supervisor fleshing strength This is a permanent part of the Medical Record [facility]
--- NOTE | 2019-11-30 14:00 | EKG ---
Test Reason : Blood Pressure : / mmHG Vent. Rate : 083 BPM Atrial Rate : 083 BPM P-R Int : 144 ms QRS Dur : 102 ms QT Int : 374 ms P-R-T Axes : 068 063 056 degrees QTc Int : 439 ms Normal sinus rhythm Normal ECG Confirmed by IVANIA WALKER ([id number]) on 11/30/2019 1:59:29 PM Referred By: SUSSY Confirmed By:IVANIA WALKER
--- NOTE | 2019-12-01 12:54 | EKG ---
Test Reason : Blood Pressure : / mmHG Vent. Rate : 095 BPM Atrial Rate : 095 BPM P-R Int : 116 ms QRS Dur : 102 ms QT Int : 340 ms P-R-T Axes : 071 040 028 degrees QTc Int : 427 ms Sinus rhythm with Premature supraventricular complexes Otherwise normal ECG Confirmed by CAROLINA CARABALLO DO ([id number]), primer expeditor and drier MINO BOWEN ([id number]) on 12/01/2019 12:54:10 PM Referred By: Confirmed By:CAROLINA CARABALLO DO
--- NOTE | 2019-12-03 06:04 | PQF ---
CLINICAL DOCUMENTATION CLARIFICATION FORM: Dear : Gilberto Lombardi Date / Time: 11/30/19 0603 Please exercise your independent, professional judgment in responding to the clarification form. Clinical indicators are provided on the bottom of this form for your review Please check appropriate box(es) to clarify if the following diagnosis has been ruled in our ruled out: Acute Respiratory Failure [ ] Ruled in diagnosis [ ] Continue to treat [ ] Resolved [ ] Ruled out diagnosis [ ] Improving [ x ] Cannot rule out diagnosis [ ] Other diagnosis [ ] Unable to determine Physician Signature: NANCI Date/Time: 12/03/19 For continuity of documentation, please document condition throughout progress notes and discharge summary. Thank You. To be completed by CDI/Coding staff for physician review: Present Clinical Indicators - Signs / Symptoms / Labs Results and Location in Medical Record [X] Acute hypoxic respiratory failure likely 2/2 lung mass vs environment factors H&P p4 Dr Gongora 11/23 [X] SOB likely multifactorial more than likely related to either COPD vs lung mass Consult p3 Dr. Ennis 11/24 [X] BP 140/63, Pulse 91, Resp 20 Vital signs 11/23 [X] 02 Sat: 11/23=92 11/24=93 11/25=94 Vital signs 11/23 [X] He states the SOB has been on the last 7 months H&P p1 Dr Gongora 11/23 [X] He states that he has had progressive SOB, dyspnea, and exercise intolerance H&P p1 Dr Gongora 11/23 [X] Chest Xray: Similar appearing left perihilar mass. Chronic right layering pleural effusion and adjacent from atelectasis Chest Xray 11/23 [X] Reduced air entry bilaterally PN p3 11/24 [X] Lungs: Have reduced breath sounds bilaterally Consult p2 Dr. Ennis 11/24 [X] Hypoxia ED Notes p4 Dr. Toledo 11/25 Present Risk Factors Results and Location in Medical Record [X] 79 year-old Male H&P p1 Dr Gongora 11/23 [X] Lung Nodule PN p4 11/24 [X] COPD H&P p1 Dr Gongora 11/23 [X] Chewing tobacco H&P p2 Dr Gongora 11/23 [X] Pleural effusion Consult p1 Dr. Ennis 11/24 Present Treatments Results and Location in Medical Record [X] Albuterol Sulfate 1 puff MAY 02 [X] Duoneb 3 ml inhaler MAY 02 [X] Manager Wellness consult Consult Jarrod Everett 11/24 [X] Chest X-ray Imagin Dr Rich11/23 [X] Chest/Thorax CTA Imaging Dr Gu 11/23 CDS/Crew Team Member Signature: Oxana Stewart Danetteshelbielisa Phone #: ext [phone] Date/Time: 11/30/2019 0603 This is a permanent part of the Medical Record [facility]
== END 2019-11-26 17:29 | disposition home or self-care (01) | DRG 189 ==
LOC: ERS 12:40 → 2SW 16:16 → OBSVTOIN 11-26 09:42
PROVIDERS: ADMIT Family Medicine; ATTEND Family Medicine
PROC: 0DBN8ZX Excision of Sigmoid Colon, Via Natural or Artificial Opening Endoscopic, Diagnostic (ICD-10-PCS; principal; 2019-11-26)
DX: J96.01 Acute respiratory failure with hypoxia (principal); J44.1 Chronic obstructive pulmonary disease with (acute) exacerbation; J90 Pleural effusion, not elsewhere classified; I24.8 Other forms of acute ischemic heart disease; Z20.828 Contact with and (suspected) exposure to other viral communicable diseases; I25.10 Atherosclerotic heart disease of native coronary artery without angina pectoris; G89.29 Other chronic pain; M54.5 Low back pain; N40.0 Benign prostatic hyperplasia without lower urinary tract symptoms; E78.5 Hyperlipidemia, unspecified; I25.5 Ischemic cardiomyopathy; R13.10 Dysphagia, unspecified; R91.8 Other nonspecific abnormal finding of lung field; K57.30 Diverticulosis of large intestine without perforation or abscess without bleeding; K63.5 Polyp of colon; Z85.828 Personal history of other malignant neoplasm of skin; Z95.1 Presence of aortocoronary bypass graft; Z79.899 Other long term (current) drug therapy; Z79.02 Long term (current) use of antithrombotics/antiplatelets; Z79.82 Long term (current) use of aspirin
CPT/HCPCS: 36415; 71045; 71275; 78472; 80048; 80053; 82553; 83036; 83735; 83880; 84145; 84484; 85025; 85379; 87635; 88305; 93005; 93010; 93306; 94640; 96372; 96374; 96375; A9604; G0378; J0456; J1644; J1650; J1940; J2704; J2930; J7050; J7512; J7620; Q9967; U0003

== ENCOUNTER 2020-02-22 11:24 | Emergency (ER) | payer MEDICARE, BC ==
--- NOTE | 2020-02-22 12:28 | RAD ---
RADIOGRAPH CHEST 1 VIEW: DATE: 02/22/2020 TIME: 12:15 PM HISTORY: 79-year-old male with dyspnea and chest pain COMPARISON: 11/24/2019 FINDINGS: Small infrahilar pulmonary mass again noted. No cardiomegaly. Sternotomy wires. Small right pleural effusion. Chronic interstitial densities at the periphery of the right lung. No pneumothorax. No new consolidation. No interval change. IMPRESSION: 1) no acute findings. 2) small chronic right pleural effusion. 3) chronic interstitial pulmonary changes on the right. 4) small left infrahilar pulmonary mass. 5) no interval change
[2020-02-22] MEDS ORDERED: Morphine 4 MG/ML VIAL ONE ×3 (12:34→16:14)
[2020-02-22 12:58] LABS: #Eosinphils 0.1 thou/uL (0.0-0.7); #Lymphocytes 0.8 thou/uL (1.20-3.40); #Monocytes 0.9 thou/uL (0.11-0.59); #Neutrophils 8.1 thou/uL (1.40-6.50); %Basophils 0.3 % (0.0-1.0); %Eosinophils 0.6 % (0.0-10.0); %Monocytes 8.9 % (0.0-10.0); %Neutrophils 82.1 % (42.0-75.0); Mean Corpuscular HGB CONC 32.8 g/dL (32.0-36.0); Mean Corpuscular Hemoglobin 32.5 pg (27.0-31.0); Mean Corpuscular Volume 99.2 fL (78.0-98.0); Mean Platelet Volume 6.6 fL (7.4-10.4); Platelet Count 140 thou/uL (130-400); RBC Distribution Width 12.3 % (11.5-14.5); Red Blood Cell (RBC) Count 4.62 mill/uL (4.70-6.10); White Blood Cell (WBC) Count 9.9 thou/uL (4.8-10.8)
[2020-02-22] MEDS ORDERED: Iopamidol-370 76% 500 ML 1 ML ONE (13:22)
[2020-02-22 13:26] LABS: ALT (SGPT) 16 U/L (8-55); AST (SGOT) 26 U/L (5-34); Albumin 3.9 g/dL (3.4-4.8); Alkaline Phosphatase 122 U/L (40-110); Anion Gap 12 mmol/L (10-20); BUN (Urea Nitrogen) 15 mg/dL (8.4-25.7); Bilirubin, Total 0.6 mg/dL (0.2-1.2); CK (CPK) 38 U/L (30-200); Calc. Creatinine Clearance 0 mL/min (70-130); Carbon Dioxide 35 mmol/L (23-31); Chloride 94 mmol/L (98-107); Globulin 3.6 g/dL (2.4-3.5); Glucose 122 mg/dL (83-110); Potassium 4.1 mmol/L (3.5-5.1); Protein, Total 7.5 g/dL (5.8-8.1); Sodium 137 mmol/L (136-145)
[2020-02-22 13:42] LABS: CKMB 1.7 ng/mL (0-6.6)
--- NOTE | 2020-02-22 14:17 | CT ---
CTA Angio Chest W WO Con History: Chest pain Comparison: Chest radiograph same day CT chest November 24, 2019 Findings: CT angiogram chest performed after the intravenous ministration of contrast. 3-D rendering provided. Mildly distended gallbladder. No proximal segmental pulmonary arterial filling defect. Size unchanged left infrahilar mass. No new suspicious pulmonary nodule. Scattered scarring throughout the lung parenchymal round atelecta sis right lower lobe. Moderate paraseptal emphysema. Thoracic spine is intact. Sternum and manubrium are intact. No acute d isplaced rib fracture. Right adrenal calcifications are similar. Impression: 1. No pulmonary embolism. 2. Similar sized left lower lobe mass measuring up to 1.8 cm. 3. [id number] paraseptal emphysema. 4. Mildly distended gallbladder incompletely evaluated. If patient is having acute right upper quadra nt pain, ultrasound may be beneficial.
[2020-02-22 15:27] LABS: SARS-CoV-2 NAA Rapid Test Not Detected (NotDetected)
[2020-02-22 17:36] LABS: CKMB 1.1 ng/mL (0-6.6)
== END 2020-02-22 17:55 | disposition short-term general hospital (02) ==
LOC: ERS 11:24
DX: R07.89 Other chest pain (principal); I10 Essential (primary) hypertension; J44.9 Chronic obstructive pulmonary disease, unspecified; E78.5 Hyperlipidemia, unspecified; F17.220 Nicotine dependence, chewing tobacco, uncomplicated; Z79.899 Other long term (current) drug therapy
CPT/HCPCS: 0240U; 71045; 71275; 80053; 82550; 82553; 83605; 84484 ×2; 85025; 87040; 87086; 93005; 96374; 96376; 99285; 36415; J2270; Q9967

== ENCOUNTER 2020-02-24 13:36 | Emergency (ER) | payer MEDICARE, BC ==
[~2020-02-24 13:36] MED LIST changes: -Heparin 1,000 UNITS/ML VIAL ONE
[2020-02-24 14:50] LABS: Actual Bicarbonate (HCO3a) 39.2 mEq/L (22-28); Analyzer IN Cardio ER; Base Excess (BEa) 12.9 mEq/L (-2.0 to +3.0); CO2 Tension 56.2 mmHg (35.0-45.0); Calcium, Ionized (arterial) 1.16 mmol/L (1.12-1.30); Potassium - ABG Lab 4.05 mmol/L (3.70-5.30); pH, Arterial 7.46 (7.35-7.45)
[2020-02-24 14:53] LABS: O2 Tension (PaO2), arterial 57.4 mmHg (> 70.0); Puncture Site RRA
[2020-02-24] MEDS ORDERED: Nystatin 500,000 UNITS/5 ML UDCUP SSW SCH (15:30)
[2020-02-24] MEDS ORDERED: Fluconazole 100 MG TAB PO SCH (15:30)
--- NOTE | 2020-02-24 16:45 | CT ---
EXAM: CT Neck Soft Tissue W Con PROVIDED CLINICAL HISTORY: Crush in mouth. Esophagitis. Difficulty swallowing. Erythematous an inflamed oral mucosa with white d ischarge. COMPARISON: CTA thorax on 02/22/2020 FINDINGS: The pharyngeal and parapharyngeal spaces have a normal appearance. Prevertebral soft tissue space is normal in appearance without edema or fluid appreciated. Carotid spaces are symmetric in appearance bilaterally. The bilateral parotid glands, submandibular glands, and thyroid gland demonstrates a normal CT appear ance. Vascular calcifications are seen at the carotid artery bifurcations. A prominent torus palatinis is present. Multilevel degenerative changes are present in the cervical spine. There is calcification of the ante rior longitudinal ligament involving the visualized upper thoracic spine. Visualized upper chest demonstrates chronic lung changes involving the upper and limited visualized m id lung zones with emphysematous changes and scattered areas of scarring. There are prominent degenerative changes involving each sternal clavicular joint with fluid seen at t he left sternal clavicular joint likely attributable to the degenerative changes. Postoperative changes related to CABG are present. Vascular calcifications are seen in the thoracic a dandy. There is mild increase in number of mediastinal lymph nodes also seen on recent CTA of the chest. The re is an enlarged subcarinal lymph node measuring 1.4 cm in short axis dimension. IMPRESSION: 1. Pharyngeal and parapharyngeal spaces are within normal limits. The tonsils have a normal CT appear ance bilaterally. 2. No mass or lymphadenopathy is seen in the neck. No fluid collection is seen. 3. On increase in number of mediastinal lymph nodes with mildly enlarged subcarinal lymph node. Findi ngs are unchanged compared to CTA chest on 02/22/2020. 4. Chronic lung changes. 5. Prominent degenerative changes involving each sternal clavicular joint. There is a small amount of fluid seen at the level of the left sternal clavicular joint.
[2020-02-24] MEDS ORDERED: Dexamethasone 10 MG/ML VIAL ONE (17:07)
== END 2020-02-24 17:19 | disposition home or self-care (01) ==
LOC: ERS 13:36
DX: B37.9 Candidiasis, unspecified (principal); I10 Essential (primary) hypertension; J44.9 Chronic obstructive pulmonary disease, unspecified; Z87.891 Personal history of nicotine dependence
CPT/HCPCS: 36600; 70491; 82805; J1100; Q9967

== ENCOUNTER 2020-03-01 11:09 | Outpatient (CLI) | payer MEDICARE, BC ==
[2020-03-01 11:52] LABS: Estimated GFR-MDRD - POC Greater than 90
--- NOTE | 2020-03-01 12:32 | MRI ---
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 G 44.52 and C 34.32 evaluate for brain metastasis. TECHNIQUE: Multiplanar, multisequence MRI of the brain obtained pre and post IV injection of gadolinium based co ntrast agent. FINDINGS: The ventricles are normal in size and configuration. There is no midline shift or any other evidence of mass effect. There is no extra-axial fluid collection. There is no intra-axial signal abnormality, abnormal enhancement, mass, recent hemorrhage, or restricted diffusion. No dural venous sinus thrombosis. IMPRESSION: Normal
== END 2020-03-01 11:10 | disposition home or self-care (01) ==
LOC: MRI 11:09
PROVIDERS: ATTEND Radiology Radiation Oncology
DX: C34.32 Malignant neoplasm of lower lobe, left bronchus or lung (principal); R51.9 Headache, unspecified
CPT/HCPCS: 70553; 82565

== ENCOUNTER 2020-06-01 09:55 | Outpatient (CLI) | payer MEDICARE, BC ==
[2020-06-01 10:18] LABS: Estimated GFR-MDRD - POC Greater than 90
[2020-06-01] MEDS ORDERED: Iopamidol-370 76% 500 ML 1 ML ONE (11:22)
== END 2020-06-01 09:56 | disposition home or self-care (01) ==
LOC: BICCT 09:55
PROVIDERS: ATTEND Radiology Radiation Oncology
DX: C34.92 Malignant neoplasm of unspecified part of left bronchus or lung (principal); R91.8 Other nonspecific abnormal finding of lung field; E27.8 Other specified disorders of adrenal gland; Z92.3 Personal history of irradiation
CPT/HCPCS: 71260; 82565; Q9967

== ENCOUNTER 2021-01-12 11:08 | Outpatient (CLI) | payer MEDICARE, BC ==
[2021-01-12 11:33] LABS: Estimated GFR-MDRD - POC Greater than 90
[2021-01-12] MEDS ORDERED: Iopamidol-370 76% 500 ML 1 ML ONE (12:43)
== END 2021-01-12 11:09 | disposition home or self-care (01) ==
LOC: BICCT 11:08
PROVIDERS: ATTEND Radiology Radiation Oncology
DX: C34.30 Malignant neoplasm of lower lobe, unspecified bronchus or lung (principal); Z92.3 Personal history of irradiation; R91.8 Other nonspecific abnormal finding of lung field
CPT/HCPCS: 71260; 82565; Q9967

== ENCOUNTER 2021-02-02 11:08 | Inpatient (IN) | payer MEDICARE, BC ==
[2021-02-02 11:30] LABS: Actual Bicarbonate (HCO3a) 30.8 mEq/L (22-28); Analyzer IN Cardio ER; Base Excess (BEa) 0.2 mEq/L (-2.0 to +3.0); Calcium, Ionized (arterial) 1.07 mmol/L (1.12-1.30); Carboxyhemoglobin (COHb) 0.7 gm% (0.0-3.0); Hemoglobin (Hb) 13.1 g/dL (14.0-18.0); O2 Tension (PaO2), arterial 85.4 mmHg (> 70.0); Potassium - ABG Lab 2.82 mmol/L (3.70-5.30); pH, Arterial 7.18 (7.35-7.45)
[2021-02-02] MEDS ORDERED: fentaNYL Citrate/PF 2,000 MCG in Sodium Chloride 0.9% 60 ML IV SCH (11:30)
[2021-02-02 11:31] LABS: CO2 Tension 84.2 mmHg (35.0-45.0); Puncture Site LRA
[2021-02-02] MEDS ORDERED: Pantoprazole 40 MG VIAL ONE (11:35)
[2021-02-02] MEDS ORDERED: Pantoprazole 80 MG, Admixture Fee 1 EACH in Sodium Chloride 0.9% 100 ML IVPB SCH ×2 (12:00→12:15)
[2021-02-02] MEDS ORDERED: Cefepime 2 GM VIAL ONE (12:08)
[2021-02-02] MEDS ORDERED: VANCOMYCIN 2 GRAM/400 ML BAG 2 GM in Premix Bag 1 BAG IVPB SCH (12:15)
[2021-02-02 14:17] LABS: SARS-CoV-2 NAA Rapid Test Not Detected (NotDetected)
[2021-02-02] MEDS ORDERED: Ventilator Sedation Protocol 1 EACH FS ONE (14:24)
[2021-02-02] MEDS ORDERED: Bisacodyl 10 MG SUPP PR PRN (14:24)
[2021-02-02] MEDS ORDERED: Sodium Chloride 0.9% 1,000 ML IV SCH (14:24)
[2021-02-02] MEDS ORDERED: Ondansetron PF 4 MG/2 ML Vial IVP PRN (14:24)
[2021-02-02] MEDS ORDERED: Acetaminophen 325 MG TAB PO PRN (14:24)
[2021-02-02] MEDS ORDERED: Cefepime 2 GM VIAL IVPB SCH (14:24)
[2021-02-02 14:29] LABS: Troponin I 0.122 ng/mL (< 0.028)
[2021-02-02 14:48] LABS: Hemoglobin 12.5 g/dL (14.0-18.0)
[2021-02-02 14:51] LABS: Actual Bicarbonate (HCO3a) 23.9 mEq/L (22-28); Base Excess (BEa) -3.5 mEq/L (-2.0 to +3.0); Carboxyhemoglobin (COHb) 0.7 gm% (0.0-3.0); Hemoglobin (Hb) 13.7 g/dL (14.0-18.0); Potassium - ABG Lab 3.18 mmol/L (3.70-5.30); pH, Arterial 7.27 (7.35-7.45)
[2021-02-02 15:06] LABS: Puncture Site RBA
[2021-02-02] MEDS ORDERED: Morphine 4 MG/ML VIAL SLOW IVP PRN (15:14)
[2021-02-02] MEDS ORDERED: SODIUM CHLORIDE IVPB SCH (15:15)
[2021-02-02] MEDS ORDERED: Propofol BOLUS 1,000 MG/100 ML VIAL IV PRN (15:15)
[2021-02-02] MEDS ORDERED: Fentanyl BOLUS 250 ML IVPB PRN (15:15)
[2021-02-02] MEDS ORDERED: NOREPINEPHRINE IVPB SCH (15:15)
[2021-02-02] MEDS ORDERED: ADMIXTURE FEE IVPB SCH (15:15)
[2021-02-02] MEDS ORDERED: Propofol 1,000 MG/100 ML VIAL IV PRN (15:15)
[2021-02-02] MEDS ORDERED: DISCONTINUE PREVIOUS NARCOTIC PAIN MEDICATIONS AND BENZODIAZEPINES FS SCH (15:15)
[2021-02-02] MEDS ORDERED: Magnesium 2 GM/50 ML 2 GM in Premix Bag 1 BAG IVPB SCH (17:00)
[2021-02-02] MEDS ORDERED: Lactated Ringer's 1,000 ML IV SCH (17:15)
[2021-02-02 17:23] LABS: Troponin I 0.147 ng/mL (< 0.028)
[2021-02-02] MEDS: methylPREDNISolone Sod Succ 40 MG VIAL IVP SCH ×2 (17:24→23:04)
[2021-02-02] MEDS ORDERED: Aspirin 325 mg Enteric Coated Tablet PO SCH (18:00)
[2021-02-02] MEDS ORDERED: Piperacillin/Tazobactam 4.5 GM in Sodium Chloride 0.9% 100 ML IVPB SCH (18:00)
[2021-02-02] MEDS ORDERED: Piperacillin/Tazobactam 3.375 GM in Sodium Chloride 0.9% 100 ML IVPB SCH (18:30)
[2021-02-02] MEDS: Lorazepam 2 MG/ML VIAL SLOW IVP PRN (20:19)
[2021-02-02] MEDS: Atorvastatin Calcium 40 MG TAB PO SCH (20:19)
[2021-02-02] MEDS: Pantoprazole 40 MG VIAL IVP SCH (20:20)
[2021-02-02] MEDS: Lantus 1000 UNITS/10 ML VIAL SC SCH (20:23)
[2021-02-02 20:47] LABS: Hemoglobin 12.5 g/dL (14.0-18.0)
[2021-02-02] MEDS: Piperacillin/Tazobactam 3.375 GM in Sodium Chloride 0.9% 100 ML IVPB SCH (22:20)
[2021-02-02 23:50] LABS: Troponin I 0.197 ng/mL (< 0.028)
[2021-02-03] MEDS ORDERED: Cefepime 2 GM in Sodium Chloride 0.9% 100 ML IVPB SCH (00:01)
[2021-02-03] MEDS: Vancomycin 1 GM in Premix Bag 1 BAG IVPB SCH ×2 (01:23→13:01)
[2021-02-03 01:58] LABS: Hemoglobin 12.4 g/dL (14.0-18.0)
[2021-02-03 04:37] LABS: ALT (SGPT) 13 U/L (8-55); AST (SGOT) 25 U/L (5-34); Albumin 2.5 g/dL (3.4-4.8); Alkaline Phosphatase 58 U/L (40-110); Anion Gap 12 mmol/L (10-20); BUN (Urea Nitrogen) 14 mg/dL (8.4-25.7); Bilirubin, Total 0.5 mg/dL (0.2-1.2); CK (CPK) 178 U/L (30-200); Calc. Creatinine Clearance 78 mL/min (70-130); Calcium 8.1 mg/dL (7.8-10.44); Carbon Dioxide 27 mmol/L (23-31); Chloride 105 mmol/L (98-107); Globulin 2.7 g/dL (2.4-3.5); Glucose 171 mg/dL (83-110); Potassium 4.1 mmol/L (3.5-5.1); Protein, Total 5.2 g/dL (5.8-8.1); Sodium 140 mmol/L (136-145)
[2021-02-03 04:55] LABS: Band 40 % (5-11); Hemoglobin 11.8 g/dL (14.0-18.0); Lymphocytes 8 % (21-51); MDiff Complete? YES; Mean Corpuscular HGB CONC 32.2 g/dL (32.0-36.0); Mean Corpuscular Hemoglobin 32.3 pg (27.0-31.0); Mean Platelet Volume 6.5 fL (7.4-10.4); Monocytes 7 % (0-10); Neutrophil 45 % (42-75); Platelet Count 201 thou/uL (130-400); Platelet Morphology Comment Appears Adequate; RBC Distribution Width 12.8 % (11.5-14.5); RBC Morphology Normal; Red Blood Cell (RBC) Count 3.66 mill/uL (4.70-6.10); White Blood Cell (WBC) Count 13.1 thou/uL (4.8-10.8)
[2021-02-03] MEDS: methylPREDNISolone Sod Succ 40 MG VIAL IVP SCH ×4 (05:53→23:08)
[2021-02-03] MEDS: Piperacillin/Tazobactam 3.375 GM in Sodium Chloride 0.9% 100 ML IVPB SCH ×3 (06:01→23:08)
[2021-02-03] MEDS: Enoxaparin Sodium 40 MG/0.4 ML SYRINGE SC SCH (08:52)
[2021-02-03] MEDS: Pantoprazole 40 MG VIAL IVP SCH ×2 (08:53→20:12)
[2021-02-03] MEDS: Aspirin 81 mg Enteric Coated Tablet PO SCH (08:53)
[2021-02-03 11:04] LABS: Actual Bicarbonate (HCO3a) 30.7 mEq/L (22-28); Base Excess (BEa) 6.3 mEq/L (-2.0 to +3.0); CO2 Tension 43.6 mmHg (35.0-45.0); Calcium, Ionized (arterial) 1.14 mmol/L (1.12-1.30); Hemoglobin (Hb) 11.7 g/dL (14.0-18.0); O2 Tension (PaO2), arterial 71.3 mmHg (> 70.0); Potassium - ABG Lab 3.69 mmol/L (3.70-5.30); pH, Arterial 7.47 (7.35-7.45)
[2021-02-03 11:06] LABS: Puncture Site LBA
[2021-02-03 12:30] LABS: Troponin I 0.238 ng/mL (< 0.028)
[2021-02-03] MEDS ORDERED: Levofloxacin 750 mg/D5W 500 MG in Premix Bag 1 BAG IVPB SCH (14:00)
[2021-02-03] MEDS: Insulin Regular 300 UNITS/3 ML VIAL SC PRN (16:00)
[2021-02-03] MEDS ORDERED: Norepinephrine 8 MG/0.9% NS 250 ML IVPB SCH (17:30)
[2021-02-03] MEDS: Atorvastatin Calcium 40 MG TAB PO SCH (20:12)
[2021-02-03] MEDS: Lantus 1000 UNITS/10 ML VIAL SC SCH (20:48)
[2021-02-03] MEDS: Fentanyl CADD 100 ML IV SCH (20:52)
[2021-02-04 00:41] LABS: Vancomycin, Trough 10.4 ug/mL
[2021-02-04] MEDS ORDERED: VANCOMYCIN 1.25 GM/250 ML BAG 1.25 GM in Premix Bag 1 BAG IVPB SCH (01:00)
[2021-02-04 04:08] LABS: Troponin I 0.142 ng/mL (< 0.028)
[2021-02-04] MEDS: Piperacillin/Tazobactam 3.375 GM in Sodium Chloride 0.9% 100 ML IVPB SCH ×3 (06:00→23:36)
[2021-02-04] MEDS: Insulin Regular 300 UNITS/3 ML VIAL SC PRN ×2 (06:00→12:02)
[2021-02-04] MEDS: methylPREDNISolone Sod Succ 40 MG VIAL IVP SCH ×4 (06:00→23:36)
[2021-02-04 08:34] LABS: Hemoglobin 11.2 g/dL (14.0-18.0); Mean Corpuscular Hemoglobin 32.7 pg (27.0-31.0); Mean Corpuscular Volume 99.1 fL (78.0-98.0); Mean Platelet Volume 7.7 fL (7.4-10.4); Platelet Count 156 thou/uL (130-400); RBC Distribution Width 13.1 % (11.5-14.5); Red Blood Cell (RBC) Count 3.43 mill/uL (4.70-6.10); White Blood Cell (WBC) Count 11.8 thou/uL (4.8-10.8)
[2021-02-04] MEDS: Aspirin 81 mg Enteric Coated Tablet PO SCH (09:02)
[2021-02-04] MEDS: Pantoprazole 40 MG VIAL IVP SCH ×2 (09:02→20:07)
[2021-02-04] MEDS: Enoxaparin Sodium 40 MG/0.4 ML SYRINGE SC SCH (09:02)
[2021-02-04 09:03] LABS: Anion Gap 13 mmol/L (10-20); BUN (Urea Nitrogen) 23 mg/dL (8.4-25.7); Calc. Creatinine Clearance 83 mL/min (70-130); Calcium 8.3 mg/dL (7.8-10.44); Carbon Dioxide 27 mmol/L (23-31); Chloride 104 mmol/L (98-107); Glucose 271 mg/dL (83-110); Potassium 3.9 mmol/L (3.5-5.1); Sodium 140 mmol/L (136-145)
[2021-02-04 09:06] LABS: Band 21 % (5-11); Lymphocytes 9 % (21-51); MDiff Complete? YES; Monocytes 3 % (0-10); Neutrophil 67 % (42-75); Platelet Morphology Comment Appears Adequate; Polychromasia SLIGHT = 2-3 cells (100X) (0-2/hpf); Vacuoles MODERATE
[2021-02-04] MEDS: Diltiazem HCl 125 MG, Admixture Fee 1 EACH in Sodium Chloride 0.9% 100 ML IVPB SCH (15:42)
[2021-02-04] MEDS: Mometasone 100 MCG/Formoterol 5 MCG 120 PUFF INHALER INH SCH (18:22)
[2021-02-04] MEDS: Atorvastatin Calcium 40 MG TAB PO SCH (20:07)
[2021-02-04] MEDS: Lantus 1000 UNITS/10 ML VIAL SC SCH (21:51)
[2021-02-04] MEDS: Lorazepam 2 MG/ML VIAL SLOW IVP PRN (22:19)
[2021-02-04 22:24] LABS: Calcium, Ionized (arterial) 1.25 mmol/L (1.12-1.30); Carboxyhemoglobin (COHb) 0.2 gm% (0.0-3.0); Hemoglobin (Hb) 12.9 g/dL (14.0-18.0); O2 Tension (PaO2), arterial 173.8 mmHg (> 70.0)
[2021-02-04 22:25] LABS: pH, Arterial 7.11 (7.35-7.45)
[2021-02-04 22:26] LABS: CO2 Tension 115.4 mmHg (35.0-45.0); Puncture Site LRA
[2021-02-04] MEDS: Fentanyl CADD 100 ML IV SCH (23:28)
[2021-02-04 23:51] LABS: Actual Bicarbonate (HCO3a) 34.1 mEq/L (22-28); Base Excess (BEa) 7.1 mEq/L (-2.0 to +3.0); Carboxyhemoglobin (COHb) 0.4 gm% (0.0-3.0); Hemoglobin (Hb) 11.6 g/dL (14.0-18.0); O2 Tension (PaO2), arterial 64.4 mmHg (> 70.0); Potassium - ABG Lab 4.32 mmol/L (3.70-5.30); pH, Arterial 7.37 (7.35-7.45)
[2021-02-04 23:53] LABS: ALV-art Gradient 287.025 mmHg (0-20); CO2 Tension 61.1 mmHg (35.0-45.0); Puncture Site RFA
[2021-02-05 04:27] LABS: #Lymphocytes 0.4 thou/uL (1.20-3.40); #Monocytes 0.5 thou/uL (0.11-0.59); #Neutrophils 11.2 thou/uL (1.40-6.50); %Eosinophils 0.1 % (0.0-10.0); %Lymphocytes 3.1 % (21.0-51.0); %Monocytes 4.4 % (0.0-10.0); %Neutrophils 92.4 % (42.0-75.0); Hemoglobin 10.9 g/dL (14.0-18.0); Mean Corpuscular HGB CONC 32.4 g/dL (32.0-36.0); Mean Corpuscular Hemoglobin 32.4 pg (27.0-31.0); Mean Corpuscular Volume 99.9 fL (78.0-98.0); Mean Platelet Volume 7.5 fL (7.4-10.4); Platelet Count 144 thou/uL (130-400); RBC Distribution Width 13.2 % (11.5-14.5); Red Blood Cell (RBC) Count 3.37 mill/uL (4.70-6.10); White Blood Cell (WBC) Count 12.1 thou/uL (4.8-10.8)
[2021-02-05 04:46] LABS: Anion Gap 12 mmol/L (10-20); BUN (Urea Nitrogen) 27 mg/dL (8.4-25.7); Calc. Creatinine Clearance 87 mL/min (70-130); Calcium 8.6 mg/dL (7.8-10.44); Carbon Dioxide 31 mmol/L (23-31); Chloride 105 mmol/L (98-107); Glucose 163 mg/dL (83-110); Potassium 3.7 mmol/L (3.5-5.1); Sodium 144 mmol/L (136-145)
[2021-02-05] MEDS: methylPREDNISolone Sod Succ 40 MG VIAL IVP SCH ×3 (06:08→18:03)
[2021-02-05] MEDS: Piperacillin/Tazobactam 3.375 GM in Sodium Chloride 0.9% 100 ML IVPB SCH ×3 (06:08→22:05)
[2021-02-05] MEDS: Insulin Regular 300 UNITS/3 ML VIAL SC PRN ×2 (06:10→22:14)
[2021-02-05] MEDS: Mometasone 100 MCG/Formoterol 5 MCG 120 PUFF INHALER INH SCH ×2 (07:35→18:32)
[2021-02-05 08:14] LABS: Actual Bicarbonate (HCO3a) 31.6 mEq/L (22-28); Base Excess (BEa) 7.6 mEq/L (-2.0 to +3.0); CO2 Tension 42.2 mmHg (35.0-45.0); Calcium, Ionized (arterial) 1.21 mmol/L (1.12-1.30); Carboxyhemoglobin (COHb) 0.1 gm% (0.0-3.0); Hemoglobin (Hb) 11.3 g/dL (14.0-18.0); O2 Tension (PaO2), arterial 105.6 mmHg (> 70.0); Potassium - ABG Lab 3.55 mmol/L (3.70-5.30); Puncture Site RRA; pH, Arterial 7.49 (7.35-7.45)
[2021-02-05] MEDS: Enoxaparin Sodium 40 MG/0.4 ML SYRINGE SC SCH (08:33)
[2021-02-05] MEDS: Tamsulosin HCl 0.4 MG CAP PO SCH (08:34)
[2021-02-05] MEDS: Aspirin 81 mg Enteric Coated Tablet PO SCH (08:34)
[2021-02-05] MEDS: Pantoprazole 40 MG VIAL IVP SCH ×2 (08:34→20:00)
[2021-02-05] MEDS: Lantus 1000 UNITS/10 ML VIAL SC SCH ×2 (08:35→20:01)
[2021-02-05] MEDS ORDERED: Pancrelipase DR 12,000 1 CAP PER TUBE PRN (09:57)
[2021-02-05] MEDS ORDERED: Sodium Bicarbonate Tab 325 MG TAB PER TUBE PRN (09:58)
[2021-02-05] MEDS: Diltiazem HCl 125 MG, Admixture Fee 1 EACH in Sodium Chloride 0.9% 100 ML IVPB SCH (11:43)
[2021-02-05] MEDS: Digoxin 0.5 MG/2 ML AMP SLOW IVP SCH ×2 (15:16→17:04)
[2021-02-05] MEDS: Atorvastatin Calcium 40 MG TAB PO SCH (20:02)
[2021-02-05] MEDS: Lorazepam 2 MG/ML VIAL SLOW IVP PRN (20:03)
[2021-02-06] MEDS: methylPREDNISolone Sod Succ 40 MG VIAL IVP SCH ×5 (00:04→23:04)
[2021-02-06] MEDS: Lorazepam 2 MG/ML VIAL SLOW IVP PRN (01:34)
[2021-02-06] MEDS: Insulin Regular 300 UNITS/3 ML VIAL SC PRN ×4 (04:18→21:16)
[2021-02-06] MEDS: Diltiazem HCl 125 MG, Admixture Fee 1 EACH in Sodium Chloride 0.9% 100 ML IVPB SCH (04:21)
[2021-02-06 05:00] LABS: Band 9 % (5-11); Hemoglobin 10.2 g/dL (14.0-18.0); Lymphocytes 3 % (21-51); MDiff Complete? YES; Mean Corpuscular Hemoglobin 32.8 pg (27.0-31.0); Mean Corpuscular Volume 99.2 fL (78.0-98.0); Mean Platelet Volume 7.9 fL (7.4-10.4); Monocytes 3 % (0-10); Myelocyte 1 % (0-0); Neutrophil 84 % (42-75); Platelet Count 123 thou/uL (130-400); Platelet Morphology Comment Appears Decreased; RBC Distribution Width 13.1 % (11.5-14.5); RBC Morphology Normal; Red Blood Cell (RBC) Count 3.12 mill/uL (4.70-6.10); White Blood Cell (WBC) Count 5.7 thou/uL (4.8-10.8)
[2021-02-06 05:03] LABS: Anion Gap 11 mmol/L (10-20); BUN (Urea Nitrogen) 30 mg/dL (8.4-25.7); Calc. Creatinine Clearance 81 mL/min (70-130); Calcium 8.1 mg/dL (7.8-10.44); Carbon Dioxide 33 mmol/L (23-31); Chloride 107 mmol/L (98-107); Glucose 182 mg/dL (83-110); Potassium 3.8 mmol/L (3.5-5.1); Sodium 147 mmol/L (136-145)
[2021-02-06] MEDS: Piperacillin/Tazobactam 3.375 GM in Sodium Chloride 0.9% 100 ML IVPB SCH ×3 (06:00→22:06)
[2021-02-06] MEDS: Mometasone 100 MCG/Formoterol 5 MCG 120 PUFF INHALER INH SCH ×2 (07:58→18:53)
[2021-02-06] MEDS: Enoxaparin Sodium 40 MG/0.4 ML SYRINGE SC SCH (09:08)
[2021-02-06] MEDS: Pantoprazole 40 MG GRANULES PACKET PER TUBE SCH ×2 (09:08→20:00)
[2021-02-06] MEDS: Aspirin 81 mg Enteric Coated Tablet PO SCH (09:08)
[2021-02-06] MEDS: Metoprolol Tartrate 25 MG TAB PO SCH ×2 (09:08→20:00)
[2021-02-06] MEDS: Tamsulosin HCl 0.4 MG CAP PO SCH (09:08)
[2021-02-06] MEDS: Digoxin 0.5 MG/2 ML AMP SLOW IVP SCH (09:09)
[2021-02-06] MEDS: Lantus 1000 UNITS/10 ML VIAL SC SCH ×2 (09:10→21:15)
[2021-02-06] MEDS: Atorvastatin Calcium 40 MG TAB PO SCH (20:00)
[2021-02-07 03:53] LABS: Hemoglobin 10.8 g/dL (14.0-18.0); Mean Corpuscular HGB CONC 32.9 g/dL (32.0-36.0); Mean Corpuscular Hemoglobin 32.9 pg (27.0-31.0); Mean Platelet Volume 7.7 fL (7.4-10.4); Platelet Count 126 thou/uL (130-400); RBC Distribution Width 13.4 % (11.5-14.5); Red Blood Cell (RBC) Count 3.27 mill/uL (4.70-6.10); White Blood Cell (WBC) Count 4.7 thou/uL (4.8-10.8)
[2021-02-07 04:07] LABS: Anion Gap 9 mmol/L (10-20); BUN (Urea Nitrogen) 35 mg/dL (8.4-25.7); Calc. Creatinine Clearance 79 mL/min (70-130); Calcium 8.1 mg/dL (7.8-10.44); Carbon Dioxide 36 mmol/L (23-31); Chloride 107 mmol/L (98-107); Glucose 278 mg/dL (83-110); Potassium 4.3 mmol/L (3.5-5.1); Sodium 148 mmol/L (136-145)
[2021-02-07] MEDS: Insulin Regular 300 UNITS/3 ML VIAL SC PRN ×3 (04:16→21:31)
[2021-02-07] MEDS: methylPREDNISolone Sod Succ 40 MG VIAL IVP SCH ×4 (05:05→23:55)
[2021-02-07 05:41] LABS: Band 2 % (5-11); Lymphocytes 6 % (21-51); MDiff Complete? YES; Macrocytosis MODERATE=16-30 cells (100X) (0-5/hpf); Monocytes 4 % (0-10); Neutrophil 88 % (42-75); Nucleated RBC 1 % (0); Platelet Morphology Comment Appears Decreased
[2021-02-07] MEDS: Piperacillin/Tazobactam 3.375 GM in Sodium Chloride 0.9% 100 ML IVPB SCH ×3 (06:05→21:23)
[2021-02-07] MEDS: Mometasone 100 MCG/Formoterol 5 MCG 120 PUFF INHALER INH SCH ×2 (06:36→18:25)
[2021-02-07 07:09] LABS: Actual Bicarbonate (HCO3a) 34.2 mEq/L (22-28); Base Excess (BEa) 9.5 mEq/L (-2.0 to +3.0); CO2 Tension 46.7 mmHg (35.0-45.0); Calcium, Ionized (arterial) 1.13 mmol/L (1.12-1.30); Carboxyhemoglobin (COHb) 0.2 gm% (0.0-3.0); O2 Tension (PaO2), arterial 97.1 mmHg (> 70.0); Potassium - ABG Lab 4.08 mmol/L (3.70-5.30); pH, Arterial 7.48 (7.35-7.45)
[2021-02-07 07:16] LABS: Puncture Site RRA
[2021-02-07 07:17] LABS: ALV-art Gradient 129.725 mmHg (0-20)
[2021-02-07] MEDS: Lantus 1000 UNITS/10 ML VIAL SC SCH ×2 (11:50→21:31)
[2021-02-07] MEDS: Pantoprazole 40 MG GRANULES PACKET PER TUBE SCH ×2 (11:59→20:03)
[2021-02-07] MEDS: Metoprolol Tartrate 25 MG TAB PO SCH ×2 (11:59→20:03)
[2021-02-07] MEDS: Aspirin 81 mg Enteric Coated Tablet PO SCH (11:59)
[2021-02-07] MEDS: Tamsulosin HCl 0.4 MG CAP PO SCH (11:59)
[2021-02-07] MEDS: Enoxaparin Sodium 40 MG/0.4 ML SYRINGE SC SCH (12:00)
[2021-02-07] MEDS: Digoxin 0.5 MG/2 ML AMP SLOW IVP SCH (12:00)
[2021-02-07] MEDS ORDERED: Furosemide 20 MG/2 ML VIAL SLOW IVP SCH (16:30)
[2021-02-07] MEDS: Atorvastatin Calcium 40 MG TAB PO SCH (20:03)
[2021-02-07] MEDS: Fentanyl CADD 100 ML IV SCH (23:55)
[2021-02-08] MEDS: Piperacillin/Tazobactam 3.375 GM in Sodium Chloride 0.9% 100 ML IVPB SCH ×3 (03:50→20:08)
[2021-02-08 04:39] LABS: #Lymphocytes 0.5 thou/uL (1.20-3.40); #Monocytes 0.5 thou/uL (0.11-0.59); #Neutrophils 7.2 thou/uL (1.40-6.50); %Eosinophils 0.3 % (0.0-10.0); %Lymphocytes 5.6 % (21.0-51.0); %Monocytes 6.2 % (0.0-10.0); %Neutrophils 87.9 % (42.0-75.0); Hemoglobin 12.3 g/dL (14.0-18.0); Mean Corpuscular HGB CONC 32.4 g/dL (32.0-36.0); Mean Corpuscular Hemoglobin 32.6 pg (27.0-31.0); Mean Platelet Volume 7.9 fL (7.4-10.4); Platelet Count 154 thou/uL (130-400); RBC Distribution Width 13.5 % (11.5-14.5); Red Blood Cell (RBC) Count 3.78 mill/uL (4.70-6.10); White Blood Cell (WBC) Count 8.2 thou/uL (4.8-10.8)
[2021-02-08 05:05] LABS: Anion Gap 13 mmol/L (10-20); BUN (Urea Nitrogen) 36 mg/dL (8.4-25.7); Calc. Creatinine Clearance 91 mL/min (70-130); Calcium 8.4 mg/dL (7.8-10.44); Carbon Dioxide 37 mmol/L (23-31); Chloride 104 mmol/L (98-107); Glucose 259 mg/dL (83-110); Potassium 4.2 mmol/L (3.5-5.1); Sodium 150 mmol/L (136-145)
[2021-02-08] MEDS: Insulin Regular 300 UNITS/3 ML VIAL SC PRN ×4 (05:22→21:02)
[2021-02-08] MEDS: methylPREDNISolone Sod Succ 40 MG VIAL IVP SCH ×4 (05:24→23:59)
[2021-02-08] MEDS: Mometasone 100 MCG/Formoterol 5 MCG 120 PUFF INHALER INH SCH ×2 (07:52→18:39)
[2021-02-08 08:08] LABS: Actual Bicarbonate (HCO3a) 37.3 mEq/L (22-28); CO2 Tension 51.1 mmHg (35.0-45.0); Calcium, Ionized (arterial) 1.13 mmol/L (1.12-1.30); Carboxyhemoglobin (COHb) 0.6 gm% (0.0-3.0); Hemoglobin (Hb) 12.4 g/dL (14.0-18.0); O2 Tension (PaO2), arterial 86.5 mmHg (> 70.0); Potassium - ABG Lab 4.15 mmol/L (3.70-5.30); pH, Arterial 7.48 (7.35-7.45)
[2021-02-08 08:12] LABS: ALV-art Gradient 134.825 mmHg (0-20); Puncture Site RRA
[2021-02-08] MEDS ORDERED: Dextrose 5% in Water 1,000 ML IV SCH (08:45)
[2021-02-08] MEDS: Metoprolol Tartrate 25 MG TAB PO SCH ×2 (09:30→20:08)
[2021-02-08] MEDS: Aspirin 81 mg Enteric Coated Tablet PO SCH (09:30)
[2021-02-08] MEDS: Tamsulosin HCl 0.4 MG CAP PO SCH (09:30)
[2021-02-08] MEDS: Pantoprazole 40 MG GRANULES PACKET PER TUBE SCH ×2 (09:31→20:08)
[2021-02-08] MEDS: Digoxin 0.5 MG/2 ML AMP SLOW IVP SCH (09:34)
[2021-02-08] MEDS: Enoxaparin Sodium 40 MG/0.4 ML SYRINGE SC SCH (09:34)
[2021-02-08] MEDS: Lantus 1000 UNITS/10 ML VIAL SC SCH ×2 (10:27→21:00)
[2021-02-08] MEDS: Atorvastatin Calcium 40 MG TAB PO SCH (20:08)
[2021-02-09] MEDS: Fentanyl CADD 100 ML IV SCH ×2 (00:01→23:11)
[2021-02-09] MEDS: Piperacillin/Tazobactam 3.375 GM in Sodium Chloride 0.9% 100 ML IVPB SCH ×3 (03:09→20:34)
[2021-02-09 04:04] LABS: Calcium 8.1 mg/dL (7.8-10.44); Glucose 219 mg/dL (83-110)
[2021-02-09] MEDS: Insulin Regular 300 UNITS/3 ML VIAL SC PRN ×2 (04:09→11:37)
[2021-02-09 04:12] LABS: BUN (Urea Nitrogen) 32 mg/dL (8.4-25.7); Calc. Creatinine Clearance 93 mL/min (70-130)
[2021-02-09 04:40] LABS: Anion Gap 10 mmol/L (10-20); Carbon Dioxide 39 mmol/L (23-31); Chloride 104 mmol/L (98-107); Potassium 4.7 mmol/L (3.5-5.1); Sodium 148 mmol/L (136-145)
[2021-02-09 05:14] LABS: Band 7 % (5-11); Hemoglobin 12.4 g/dL (14.0-18.0); Lymphocytes 4 % (21-51); MDiff Complete? YES; Mean Corpuscular HGB CONC 31.8 g/dL (32.0-36.0); Mean Corpuscular Hemoglobin 31.7 pg (27.0-31.0); Mean Corpuscular Volume 99.8 fL (78.0-98.0); Mean Platelet Volume 7.7 fL (7.4-10.4); Monocytes 1 % (0-10); Neutrophil 88 % (42-75); Platelet Count 167 thou/uL (130-400); RBC Distribution Width 13.4 % (11.5-14.5); White Blood Cell (WBC) Count 15.8 thou/uL (4.8-10.8)
[2021-02-09] MEDS: Mometasone 100 MCG/Formoterol 5 MCG 120 PUFF INHALER INH SCH ×2 (05:20→18:58)
[2021-02-09] MEDS: methylPREDNISolone Sod Succ 40 MG VIAL IVP SCH ×3 (05:22→17:32)
[2021-02-09 06:34] LABS: Actual Bicarbonate (HCO3a) 40.8 mEq/L (22-28); CO2 Tension 54.6 mmHg (35.0-45.0); Calcium, Ionized (arterial) 1.12 mmol/L (1.12-1.30); Carboxyhemoglobin (COHb) 0.4 gm% (0.0-3.0); Hemoglobin (Hb) 13.2 g/dL (14.0-18.0); O2 Tension (PaO2), arterial 91.5 mmHg (> 70.0); pH, Arterial 7.49 (7.35-7.45)
[2021-02-09 07:15] LABS: Puncture Site RRA
[2021-02-09] MEDS: Tamsulosin HCl 0.4 MG CAP PO SCH (08:26)
[2021-02-09] MEDS: Pantoprazole 40 MG GRANULES PACKET PER TUBE SCH ×2 (08:26→20:34)
[2021-02-09] MEDS: Aspirin 81 mg Enteric Coated Tablet PO SCH (08:26)
[2021-02-09] MEDS: Metoprolol Tartrate 25 MG TAB PO SCH ×2 (08:26→20:35)
[2021-02-09] MEDS: Enoxaparin Sodium 40 MG/0.4 ML SYRINGE SC SCH (08:26)
[2021-02-09] MEDS: Lantus 1000 UNITS/10 ML VIAL SC SCH ×2 (08:36→21:09)
[2021-02-09] MEDS: Digoxin 0.125 MG TAB PO SCH (08:50)
[2021-02-09 09:36] VITALS: BMI 23.2
[2021-02-09] MEDS: Atorvastatin Calcium 40 MG TAB PO SCH (20:35)
[2021-02-09] MEDS: Lorazepam 2 MG/ML VIAL SLOW IVP PRN (22:24)
[2021-02-10] MEDS: methylPREDNISolone Sod Succ 40 MG VIAL IVP SCH ×4 (00:40→18:29)
[2021-02-10 03:43] LABS: #Lymphocytes 0.4 thou/uL (1.20-3.40); #Monocytes 0.3 thou/uL (0.11-0.59); #Neutrophils 13.3 thou/uL (1.40-6.50); %Eosinophils 0.1 % (0.0-10.0); %Lymphocytes 2.5 % (21.0-51.0); %Neutrophils 95.4 % (42.0-75.0); Hemoglobin 11.3 g/dL (14.0-18.0); Mean Corpuscular Hemoglobin 32.2 pg (27.0-31.0); Mean Platelet Volume 7.7 fL (7.4-10.4); Platelet Count 143 thou/uL (130-400); RBC Distribution Width 13.9 % (11.5-14.5); White Blood Cell (WBC) Count 13.9 thou/uL (4.8-10.8)
[2021-02-10 04:01] LABS: Anion Gap 10 mmol/L (10-20); BUN (Urea Nitrogen) 32 mg/dL (8.4-25.7); Calc. Creatinine Clearance 89 mL/min (70-130); Calcium 7.8 mg/dL (7.8-10.44); Carbon Dioxide 37 mmol/L (23-31); Chloride 103 mmol/L (98-107); Glucose 241 mg/dL (83-110); Potassium 4.8 mmol/L (3.5-5.1); Sodium 145 mmol/L (136-145)
[2021-02-10] MEDS: Insulin Regular 300 UNITS/3 ML VIAL SC PRN ×3 (04:28→16:25)
[2021-02-10] MEDS: Piperacillin/Tazobactam 3.375 GM in Sodium Chloride 0.9% 100 ML IVPB SCH ×3 (05:04→21:00)
[2021-02-10 07:40] LABS: Actual Bicarbonate (HCO3a) 39.4 mEq/L (22-28); Calcium, Ionized (arterial) 1.14 mmol/L (1.12-1.30); Carboxyhemoglobin (COHb) 0.8 gm% (0.0-3.0); Hemoglobin (Hb) 14.9 g/dL (14.0-18.0); O2 Tension (PaO2), arterial 91.1 mmHg (> 70.0); Potassium - ABG Lab 4.65 mmol/L (3.70-5.30); pH, Arterial 7.42 (7.35-7.45)
[2021-02-10] MEDS: Aspirin 81 mg Enteric Coated Tablet PO SCH (08:02)
[2021-02-10] MEDS: Digoxin 0.125 MG TAB PO SCH (08:02)
[2021-02-10] MEDS: Enoxaparin Sodium 40 MG/0.4 ML SYRINGE SC SCH (08:02)
[2021-02-10] MEDS: Tamsulosin HCl 0.4 MG CAP PO SCH (08:02)
[2021-02-10] MEDS: Metoprolol Tartrate 25 MG TAB PO SCH ×2 (08:02→21:05)
[2021-02-10] MEDS: Pantoprazole 40 MG GRANULES PACKET PER TUBE SCH ×2 (08:02→21:04)
[2021-02-10] MEDS: Lantus 1000 UNITS/10 ML VIAL SC SCH ×2 (08:03→21:12)
[2021-02-10] MEDS: Mometasone 100 MCG/Formoterol 5 MCG 120 PUFF INHALER INH SCH ×2 (08:16→18:41)
[2021-02-10 08:19] LABS: CO2 Tension 62.2 mmHg (35.0-45.0); Puncture Site RRA
[2021-02-10 14:17] LABS: SARS-CoV-2 PCR by NAA Not Detected (NotDetected)
[2021-02-10] MEDS: Atorvastatin Calcium 40 MG TAB PO SCH (21:04)
[2021-02-10 21:05] VITALS: BP 128/58
[2021-02-11] MEDS: Fentanyl CADD 100 ML IV SCH (00:02)
[2021-02-11] MEDS: methylPREDNISolone Sod Succ 40 MG VIAL IVP SCH ×3 (00:13→12:33)
[2021-02-11] MEDS: Insulin Regular 300 UNITS/3 ML VIAL SC PRN ×2 (04:00→11:05)
[2021-02-11 04:35] LABS: #Lymphocytes 0.2 thou/uL (1.20-3.40); #Monocytes 0.2 thou/uL (0.11-0.59); #Neutrophils 14.6 thou/uL (1.40-6.50); %Eosinophils 0.1 % (0.0-10.0); %Lymphocytes 1.5 % (21.0-51.0); %Monocytes 1.6 % (0.0-10.0); %Neutrophils 96.8 % (42.0-75.0); Hemoglobin 11.4 g/dL (14.0-18.0); Mean Platelet Volume 8.2 fL (7.4-10.4); Platelet Count 164 thou/uL (130-400); RBC Distribution Width 13.6 % (11.5-14.5); Red Blood Cell (RBC) Count 3.68 mill/uL (4.70-6.10); White Blood Cell (WBC) Count 15.1 thou/uL (4.8-10.8)
[2021-02-11 04:51] LABS: BUN (Urea Nitrogen) 37 mg/dL (8.4-25.7); Calc. Creatinine Clearance 96 mL/min (70-130); Calcium 7.7 mg/dL (7.8-10.44); Glucose 224 mg/dL (83-110)
[2021-02-11 05:00] LABS: Anion Gap 12 mmol/L (10-20); Carbon Dioxide 35 mmol/L (23-31); Chloride 101 mmol/L (98-107); Potassium 4.9 mmol/L (3.5-5.1); Sodium 143 mmol/L (136-145)
[2021-02-11] MEDS: Piperacillin/Tazobactam 3.375 GM in Sodium Chloride 0.9% 100 ML IVPB SCH ×2 (05:17→12:33)
[2021-02-11] MEDS: Mometasone 100 MCG/Formoterol 5 MCG 120 PUFF INHALER INH SCH (07:09)
[2021-02-11] MEDS: Lorazepam 2 MG/ML VIAL SLOW IVP PRN ×4 (08:05→17:56)
[2021-02-11 08:06] LABS: Actual Bicarbonate (HCO3a) 34.5 mEq/L (22-28); Base Excess (BEa) 8.4 mEq/L (-2.0 to +3.0); CO2 Tension 54.6 mmHg (35.0-45.0); Calcium, Ionized (arterial) 1.11 mmol/L (1.12-1.30); Carboxyhemoglobin (COHb) 0.8 gm% (0.0-3.0); O2 Tension (PaO2), arterial 92.1 mmHg (> 70.0); Potassium - ABG Lab 4.58 mmol/L (3.70-5.30); pH, Arterial 7.42 (7.35-7.45)
[2021-02-11 08:21] LABS: Puncture Site RRA
[2021-02-11] MEDS ORDERED: Lantus 1000 UNITS/10 ML VIAL SC SCH (09:00)
[2021-02-11] MEDS ORDERED: Ramipril 5 MG CAP PO SCH (09:00)
[2021-02-11] MEDS: Digoxin 0.125 MG TAB PO SCH (09:24)
[2021-02-11] MEDS: Tamsulosin HCl 0.4 MG CAP PO SCH (09:24)
[2021-02-11] MEDS: Enoxaparin Sodium 40 MG/0.4 ML SYRINGE SC SCH (09:25)
[2021-02-11] MEDS: Aspirin 81 mg Enteric Coated Tablet PO SCH (09:25)
[2021-02-11] MEDS: Pantoprazole 40 MG GRANULES PACKET PER TUBE SCH (09:25)
[2021-02-11] MEDS: Metoprolol Tartrate 25 MG TAB PO SCH (12:03)
[2021-02-11] MEDS: Morphine 4 MG/ML VIAL SLOW IVP PRN ×5 (13:56→20:10)
[2021-02-11 15:09] VITALS: TEMP 98.4
== END 2021-02-11 21:30 | disposition expired | DRG 870 ==
LOC: ERS 11:08 → CCU 13:26 → MSONC 02-11 21:00
PROVIDERS: ADMIT Internal Medicine; ATTEND Internal Medicine
PROC: 0D9670Z Drainage of Stomach with Drainage Device, Via Natural or Artificial Opening (ICD-10-PCS; 2021-02-02)
PROC: 02HV33Z Insertion of Infusion Device into Superior Vena Cava, Percutaneous Approach (ICD-10-PCS; 2021-02-02)
PROC: 3E033XZ Introduction of Vasopressor into Peripheral Vein, Percutaneous Approach (ICD-10-PCS; 2021-02-02)
PROC: B548ZZA Ultrasonography of Superior Vena Cava, Guidance (ICD-10-PCS; 2021-02-02)
PROC: 0BCB8ZZ Extirpation of Matter from Left Lower Lobe Bronchus, Via Natural or Artificial Opening Endoscopic (ICD-10-PCS; 2021-02-02)
PROC: 5A1945Z Respiratory Ventilation, 24-96 Consecutive Hours (ICD-10-PCS; 2021-02-02)
PROC: 5A1955Z Respiratory Ventilation, Greater than 96 Consecutive Hours (ICD-10-PCS; principal; 2021-02-04)
PROC: 0BH17EZ Insertion of Endotracheal Airway into Trachea, Via Natural or Artificial Opening (ICD-10-PCS; 2021-02-04)
DX: A41.9 Sepsis, unspecified organism (principal); J96.01 Acute respiratory failure with hypoxia; R65.21 Severe sepsis with septic shock; J69.0 Pneumonitis due to inhalation of food and vomit; J96.02 Acute respiratory failure with hypercapnia; I48.20 Chronic atrial fibrillation, unspecified; I42.9 Cardiomyopathy, unspecified; I50.32 Chronic diastolic (congestive) heart failure; I47.1 Supraventricular tachycardia; E87.0 Hyperosmolality and hypernatremia; I48.92 Unspecified atrial flutter; R64 Cachexia; K92.2 Gastrointestinal hemorrhage, unspecified; C34.90 Malignant neoplasm of unspecified part of unspecified bronchus or lung; Z66 Do not resuscitate; Z20.822 Contact with and (suspected) exposure to COVID-19; E78.5 Hyperlipidemia, unspecified; I25.10 Atherosclerotic heart disease of native coronary artery without angina pectoris; I11.0 Hypertensive heart disease with heart failure; D35.01 Benign neoplasm of right adrenal gland; I49.3 Ventricular premature depolarization; G93.89 Other specified disorders of brain; I08.3 Combined rheumatic disorders of mitral, aortic and tricuspid valves; J44.9 Chronic obstructive pulmonary disease, unspecified; E11.65 Type 2 diabetes mellitus with hyperglycemia; M62.81 Muscle weakness (generalized); T38.0X5A Adverse effect of glucocorticoids and synthetic analogues, initial encounter; F17.220 Nicotine dependence, chewing tobacco, uncomplicated; Z79.84 Long term (current) use of oral hypoglycemic drugs; Z79.899 Other long term (current) drug therapy; Z79.52 Long term (current) use of systemic steroids; Z79.51 Long term (current) use of inhaled steroids; Z95.1 Presence of aortocoronary bypass graft; Z98.890 Other specified postprocedural states; Z78.1 Physical restraint status; Z68.24 Body mass index [BMI] 24.0-24.9, adult; Z92.3 Personal history of irradiation
CPT/HCPCS: 0240U; 31624; 36415; 36416; 36556; 36600; 51702; 70450; 71045; 71275; 72125; 80048; 80053; 80202; 82550; 82805; 83880; 84145; 84484; 85014; 85018; 85025; 87040; 87070; 87086; 93005; 93010; 93306; 94002; 94003; 94640; 95712; 95819; 95957; 96365; 96366; 96368; 96375; 99292; C9113; J0692; J1160; J1650; J1815; J1940; J1956; J2060; J2270; J2543; J2704; J2920; J3010; J3370; J3475; J3490; J7050; J7070; J7120; J7620; Q9967; U0003; U0005